=== PATIENT | female | born 1995 | race Caucasian/White ===

== ENCOUNTER 2022-12-13 06:27 | Inpatient (IN) ==
[2022-12-13] MEDS ORDERED: LIDOCAINE 1% LOCAL 20 ML VIAL INFIL PRN (07:00)
[2022-12-13] MEDS ORDERED: OXYTOCIN 30 UNITS/500 ML BAG IV PRN ×2 (07:00)
[2022-12-13] MEDS: LACTATED RINGER'S 1,000 ML IV PRN ×3 (07:30→19:11)
[2022-12-13 07:55] LABS: Hematocrit (blood only) 31.1 % (37.0-47.0); Hemoglobin 9.5 g/dl (12.0-16.0); Mean Corpuscular Hemoglobin 23.6 pg (25.0-34.0); Mean Corpuscular Hgb Conc 30.5 g/dL (32.0-36.0); Mean Corpuscular Volume 77.4 fL (80.0-100.0); Mean Platelet Volume 12.5 fL (9.4-12.4); Platelet Count 197 K/uL (130-400); RDW Coefficient of Variation 14.7 % (11.5-14.5); RDW Standard Deviation 41.4 fL (36.4-46.3); Red Blood Count 4.02 M/uL (4.20-5.40); White Blood Count 13.38 K/ul (4.8-10.8)
--- NOTE | 2022-12-13 07:58 | History & Physical Report ---
Date of Service December 13, 2022 Assessment & Plan (1) Encounter for supervision of normal in multigravida, antepartum: Plan: Discussed plan with patient. Would advise starting pitocin if ctx not in a good labor pattern by 6h post-rupture of membranes. She discussed plan, declining all vaccines and eye ointment for baby, accepts vitamin K. She would like to labor as naturally as possible and prefers to ambulate in the halls and try to get into labor without needing pitocin. We agreed on ambulation for approx 2h and will plan to recheck contraction pattern at that point. She agrees with plan. Admission and Anticipated Discharge Date Admission Date: December 13, 2022 History of Present Illness Chief Complaint: rupture of membranes Primary Care Provider: NO PCP 27yo @ 40 0, presents after ROM at home for clear fluid at 0200 this morning. Feeling ctx Q 4-5 min. Rubella equivocal. Prior with hemorrhage - needed blood transfusion. Patient does not really recall details - but did not need to go back to OR. Allergies Allergy/AdvReac Type Severity Reaction Status Date / Time No Known Allergies Allergy Verified 12/13/22 07:19 Home Medications Medication Instructions Recorded Confirmed Type prenat.vits,negrito,iwy-mslz-eovye 1 tab PO DAILY 04/30/22 12/13/22 History Patient History Medical History (Updated 12/13/22 @ 06:59 by Jennie Steele RN) Spontaneous vaginal delivery Heart murmur Family History (Updated 03/11/22 @ 14:59 by Diamante Munroe LPN) Grandmother (Maternal) Ovarian cancer Grandmother (Paternal) Ovarian cancer Denies family history of Prostate cancer Myocardial infarction Breast cancer Colorectal cancer Social History (Updated 04/30/22 @ 10:12 by Ashwini Acuna) Smoking Status: Never smoker Tobacco Type: Cigarettes Do You Dip or Chew Tobacco: No; Hx Alcohol Use: No Hx Substance Use: No Preferred Language: Pashto [employer]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 Beliefs That Will Affect Care: None marital status: marital status details: Jaleel Diaz ([phone] Current Living Situation: Family Current Living Situation Comment: lives with spouse, 2 step sons, daughter, current occupational status: unemployed Feels Safe at Home: Yes Safety Concerns: Feels Safe At This Time Assistive Devices: None Review of Systems All systems reviewed & are unremarkable except as noted in HPI & below Physical Exam Constitutional: WD/WN, vitals as above Respiratory: normal respiratory effort, lungs clear to auscultation no respiratory distress Cardiovascular: Rate/Rhythm: regular rate and regular rhythm Gastrointestinal (Abdomen): Inspection/Auscultation: abdomen normal to inspection Percussion/Palpation: abdomen soft; abdomen nontender Gravid. No s/s chorio or abruption. Skin: no rashes, warm and dry Psychiatric: A+Ox3, euthymic affect Results & Data Vital Signs (Past 12 Hours) Vital Signs Temp Pulse Resp BP 12/13/22 06:37 89 119/68 12/13/22 06:36 18 12/13/22 06:36 36.7 C 18 Monitoring External Monitor FHT Cat 1 [place] Q 4 min SVE 3/70/-2, grossly ruptured. Coding Level of Care Code None Diagnoses Encounter for supervision of normal in multigravida, antepartum Z34.80
--- NOTE | 2022-12-13 12:37 | Labor Progress Brief Note ---
Date of Service December 13, 2022 Subjective Patient is uncomfortable - feeling rectal pressure, like she needs to have a bowel movement. Discussed with her that this is sometimes actually a bowel movement, but often when the baby starts to move down in the canal, this can feel the same way. I recommended cervix exam, she discussed with material crew supervisor and permitted the cervical exam. Upon exam, clear amniotic fluid, no bloody show. Cervix remains similar exam - very uncomfortable for patient, therefore exam is difficult - but approx 3/70/- 2. FHT Cat 1 [place] Q 3-5 min. Discussed that since she is 10-11h since rupture of membranes with no cervical change and inadequate contraction pattern, would advise starting pitocin to augment labor. Benefits of labor augmentation would be to reduce risk of chorioamnionitis and hemorrhage, both which are associated with prolonged labor. She is aware of her increased risk of hemorrhage given her history of hemorrhage with prior delivery and need for blood transfusion. She would like to relax in the labor room, as she feels that everything goes better when relaxed, and discuss with her material crew supervisor and partner. If she chooses to accept pitocin, she will let us know. Assessment & Plan Admission and Anticipated Discharge Date Admission Date: December 13, 2022 Results & Data Vital Signs (Past 12 Hours) Vital Signs Temp Pulse Resp BP 12/13/22 10:43 18 12/13/22 10:43 36.8 C 18 12/13/22 10:43 106 H 12/13/22 10:43 116/58 L 12/13/22 08:53 18 12/13/22 08:53 36.8 C 18 12/13/22 08:53 87 12/13/22 08:53 117/56 L 12/13/22 06:37 89 119/68 12/13/22 06:36 18 12/13/22 06:36 36.7 C 18 Coding Level of Care Code None
[2022-12-13] MEDS ORDERED: ePHEDrine sulfate 50 MG/ML AMP ONE (14:08)
[2022-12-13] MEDS ORDERED: fentaNYL citrate PF 100 MCG/2 ML VIAL ONE ×2 (14:08→22:06)
[2022-12-13] MEDS ORDERED: LIDOCAINE 2%/EPINEPHRINE 1:200,000 20 ML PF ONE (14:09)
[2022-12-13] MEDS ORDERED: SODIUM CHLORIDE 0.9% PF INJ 10 ML VIAL ONE (14:09)
[2022-12-13] MEDS ORDERED: fentANYL 2 MCG/ML BUPIVacaine 0.125%-NSS 100ML BAG ONE (14:09)
[2022-12-13] MEDS ORDERED: BUPIVACAINE 0.25% PF 30 ML VIAL ONE (14:09)
--- NOTE | 2022-12-13 14:23 | Anesthesiology Consultation ---
Date of Service December 13, 2022 History Height/Weight Height: 5 ft 1 in Weight: 72.121 kg Allergies Allergy/AdvReac Type Severity Reaction Status Date / Time No Known Allergies Allergy Verified 12/13/22 07:19 Medications Home Medications Medication Instructions Recorded Confirmed Last Taken prenat.vits,negrito,twu-vkto-wvkbm 1 tab PO DAILY 04/30/22 12/13/22 11/22/22 Active Medications Generic Name Dose Route Start Last Admin Trade Name Joseph PRN Reason Stop Dose Admin Oxytocin 30 units in 500 mls @ 5 mls/hr 12/13/22 07:00 12/13/22 14:18 Pitocin IV 12/15/22 06:59 0 units/hr .Q24H PRN 0 mls/hr Labor Induction/Augmentation Titration Protocol 0.3 UNITS/HR Lactated Ringer's 1,000 mls @ 125 mls/hr 12/13/22 07:00 12/13/22 14:21 Lr IV 12/15/22 06:59 999 mls/hr .Q8H PRN Administration L&D Protocol Protocol Past Medical History Medical History Spontaneous vaginal delivery Heart murmur anemia migraine H/A's Hx/o Gastric ulcer obese Exercise / Class Metabolic Activity II 4-5 Yardwork/Stairs/Walk up hill Past Family History Family History Grandmother (Maternal) Ovarian cancer Grandmother (Paternal) Ovarian cancer Denies family history of Prostate cancer Myocardial infarction Breast cancer Colorectal cancer Past Anesthesia History No Hx of Anesthesia Complications and No Family Hx of Anesthesia Complications History of PONV No Hx of PONV and No Hx of Motion Sickness Social History Smoking Status: Never smoker Do You Dip or Chew Tobacco: No Hx Alcohol Use: No Hx Substance Use: No substance use type: does not use Physical Exam Vital Signs Last Vital Signs Temp 36.5 C 12/13/22 13:37 Pulse 80 12/13/22 12:40 Resp 18 12/13/22 12:40 BP 116/72 12/13/22 12:40 Testing Laboratory Results 12/13/22 07:25 Blood Type O Positive 12/13/22 07:25 Antibody Screen NEGATIVE 12/13/22 07:25
[2022-12-13] MEDS ORDERED: LIDOCAINE 2% MPF LOCAL 5 ML VIAL EPI PRN (14:59)
[2022-12-13] MEDS ORDERED: PROMETHAZINE HCL 25 MG in SODIUM CHLORIDE 0.9% 50 ML IV PRN (14:59)
[2022-12-13] MEDS ORDERED: LIDOCAINE 2%/EPINEPHRINE 1:200,000 20 ML PF EPI STA (14:59)
[2022-12-13] MEDS ORDERED: NALBUPHINE HCL INJ 10 MG/ML AMP IV PRN ×2 (14:59→21:48)
[2022-12-13] MEDS ORDERED: NALOXONE HCL 0.4 MG/1 ML VIAL/CARP IV PRN ×2 (14:59→21:48)
[2022-12-13] MEDS ORDERED: fentaNYL citrate PF 100 MCG/2 ML VIAL EPI PRN (14:59)
[2022-12-13] MEDS ORDERED: ePHEDrine sulfate 50 MG/ML AMP IV PRN ×2 (14:59→21:48)
[2022-12-13] MEDS ORDERED: ROPIVACAINE 0.5% PF 5 MG/ML 20 ML VIAL EPI PRN (14:59)
[2022-12-13] MEDS ORDERED: ONDANSETRON INJ 2 MG/ML 2 ML VIAL IV PRN ×2 (14:59→21:48)
[2022-12-13] MEDS ORDERED: fentaNYL citrate PF 100 MCG/2 ML VIAL EPI STA (14:59)
[2022-12-13] MEDS ORDERED: fentANYL 2 MCG/ML BUPIVacaine 0.125%-NSS 100ML BAG EPI PRN (14:59)
[2022-12-13] MEDS ORDERED: NALOXONE HCL 1 MG in SODIUM CHLORIDE 0.9% 1,000 ML IV PRN ×2 (14:59→21:48)
[2022-12-13] MEDS ORDERED: SODIUM CHLORIDE 0.9% PF INJ 10 ML VIAL EPI STA (14:59)
[2022-12-13] MEDS ORDERED: BUPIVACAINE 0.25% PF 30 ML VIAL EPI STA (14:59)
[2022-12-13] MEDS ORDERED: diphenhydrAMINE 50 MG/ML VIAL IV PRN ×2 (14:59→21:48)
[2022-12-13] MEDS ORDERED: BUPIVACAINE 0.25% PF 30 ML VIAL EPI PRN (14:59)
[2022-12-13] MEDS ORDERED: SODIUM CHLORIDE 0.9% PF INJ 10 ML VIAL EPI PRN (14:59)
--- NOTE | 2022-12-13 15:54 | Labor Progress Brief Note ---
Date of Service December 13, 2022 Subjective Patient elected for epidural. More comfortable now. FHT 140s mod usman, +accels. Had a 3 minute deceleration, resolved with resuscitative measures. SVE per RN 6/100/-1 Will continue labor, continue to monitor baby - baby has fully recovered at this point. Assessment & Plan Admission and Anticipated Discharge Date Admission Date: December 13, 2022 Results & Data Vital Signs (Past 12 Hours) Vital Signs Temp Pulse Resp BP Pulse Ox 12/13/22 15:50 100 12/13/22 15:50 108 H 12/13/22 15:45 100 12/13/22 15:45 111 H 12/13/22 15:43 110 H 12/13/22 15:43 128/78 12/13/22 15:40 100 12/13/22 15:40 107 H 12/13/22 15:35 98 12/13/22 15:35 127 H 12/13/22 15:34 112 H 12/13/22 15:34 114/66 12/13/22 15:30 97 12/13/22 15:30 118 H 12/13/22 15:30 120 H 12/13/22 15:30 116/66 12/13/22 15:25 97 12/13/22 15:25 120 H 12/13/22 15:24 136 H 12/13/22 15:24 104/62 12/13/22 15:20 19 12/13/22 15:20 36.8 C 19 12/13/22 15:20 98 12/13/22 15:20 129 H 12/13/22 15:19 127 H 12/13/22 15:19 118/64 12/13/22 15:15 96 12/13/22 15:15 133 H 12/13/22 15:10 98 12/13/22 15:10 125 H 12/13/22 15:10 185/76 H 12/13/22 15:08 123 H 12/13/22 15:08 117/64 12/13/22 15:06 129 H 12/13/22 15:06 107/58 L 12/13/22 15:05 98 12/13/22 15:05 133 H 12/13/22 15:03 95 H 12/13/22 15:03 102/55 L 12/13/22 15:01 85 12/13/22 15:01 93/49 L 12/13/22 15:00 98 12/13/22 15:00 92 H 12/13/22 14:58 94 H 12/13/22 14:58 87/49 L 12/13/22 14:56 102 H 12/13/22 14:56 106/55 L 12/13/22 14:55 98 12/13/22 14:55 106 H 12/13/22 14:54 96 H 12/13/22 14:54 103/51 L 12/13/22 14:52 96 H 12/13/22 14:52 112/56 L 12/13/22 14:50 97 12/13/22 14:50 86 12/13/22 14:50 95 H 12/13/22 14:50 111/57 L 12/13/22 14:48 92 H 12/13/22 14:48 112/58 L 12/13/22 14:45 98 12/13/22 14:45 92 H 12/13/22 14:40 95 12/13/22 14:40 99 H 12/13/22 14:35 96 12/13/22 14:35 113 H 12/13/22 14:30 99 12/13/22 14:30 91 H 12/13/22 14:25 100 12/13/22 14:25 89 12/13/22 14:20 100 12/13/22 14:20 108 H 12/13/22 13:37 36.5 C 12/13/22 12:40 18 12/13/22 12:40 18 12/13/22 12:40 80 12/13/22 12:40 116/72 12/13/22 10:43 18 12/13/22 10:43 36.8 C 18 12/13/22 10:43 106 H 12/13/22 10:43 116/58 L 12/13/22 08:53 18 12/13/22 08:53 36.8 C 18 12/13/22 08:53 87 12/13/22 08:53 117/56 L 12/13/22 06:37 89 119/68 12/13/22 06:36 18 12/13/22 06:36 36.7 C 18 Coding Level of Care Code None
--- NOTE | 2022-12-13 19:06 | Labor Progress Brief Note ---
Date of Service December 13, 2022 Subjective Pushing for 1 hour at this point. FHT 165, mod usman, +accels, occ variable (not recurrent) 2+ station. Continue labor. Assessment & Plan Admission and Anticipated Discharge Date Admission Date: December 13, 2022 Results & Data Vital Signs (Past 12 Hours) Vital Signs Temp Pulse Resp BP Pulse Ox 12/13/22 19:01 96 H 12/13/22 19:01 112/69 12/13/22 19:00 97 12/13/22 19:00 105 H 12/13/22 18:55 99 12/13/22 18:55 109 H 12/13/22 18:50 97 12/13/22 18:50 100 H 12/13/22 18:45 98 12/13/22 18:45 102 H 12/13/22 18:42 76 L 12/13/22 18:42 106 H 12/13/22 18:40 98 12/13/22 18:40 115 H 12/13/22 18:35 98 12/13/22 18:35 107 H 12/13/22 18:33 78 L 12/13/22 18:33 102 H 12/13/22 18:31 115 H 12/13/22 18:31 121/81 12/13/22 18:30 97 12/13/22 18:30 125 H 12/13/22 18:27 90 12/13/22 18:27 107 H 12/13/22 18:25 98 12/13/22 18:25 107 H 12/13/22 18:20 98 12/13/22 18:20 108 H 12/13/22 18:18 93 12/13/22 18:18 103 H 12/13/22 18:15 99 12/13/22 18:15 105 H 12/13/22 18:12 87 L 12/13/22 18:12 100 H 12/13/22 18:10 99 12/13/22 18:10 129 H 12/13/22 18:06 82 L 12/13/22 18:06 100 H 12/13/22 18:05 100 12/13/22 18:05 101 H 12/13/22 18:00 100 12/13/22 18:00 109 H 12/13/22 17:58 22 12/13/22 17:58 36.9 C 22 12/13/22 17:57 94 12/13/22 17:57 104 H 12/13/22 17:55 100 12/13/22 17:55 103 H 12/13/22 17:50 100 12/13/22 17:50 94 H 12/13/22 17:45 100 12/13/22 17:45 96 H 12/13/22 17:45 93 H 12/13/22 17:45 128/71 12/13/22 17:40 99 12/13/22 17:40 104 H 12/13/22 17:35 100 12/13/22 17:35 99 H 12/13/22 17:31 95 H 12/13/22 17:31 130/70 12/13/22 17:30 98 12/13/22 17:30 101 H 12/13/22 17:25 100 12/13/22 17:25 94 H 12/13/22 17:20 100 12/13/22 17:20 94 H 12/13/22 17:15 100 12/13/22 17:15 102 H 12/13/22 17:15 130/71 12/13/22 17:10 100 12/13/22 17:10 104 H 12/13/22 17:05 100 12/13/22 17:05 104 H 12/13/22 17:03 89 L 12/13/22 17:03 98 H 12/13/22 17:01 96 H 12/13/22 17:01 126/68 12/13/22 17:00 100 12/13/22 17:00 96 H 12/13/22 16:55 100 12/13/22 16:55 115 H 12/13/22 16:54 90 12/13/22 16:54 100 H 12/13/22 16:50 99 12/13/22 16:50 96 H 12/13/22 16:45 100 12/13/22 16:45 100 H 12/13/22 16:45 128/72 12/13/22 16:40 100 12/13/22 16:40 90 12/13/22 16:35 100 12/13/22 16:35 90 12/13/22 16:30 100 12/13/22 16:30 91 H 12/13/22 16:30 122/67 12/13/22 16:25 100 12/13/22 16:25 95 H 12/13/22 16:20 100 12/13/22 16:20 110 H 12/13/22 16:18 88 L 12/13/22 16:18 90 12/13/22 16:16 93 H 12/13/22 16:16 120/74 12/13/22 16:15 36.7 C 12/13/22 16:15 100 12/13/22 16:15 100 H 12/13/22 16:10 98 12/13/22 16:10 109 H 12/13/22 16:05 99 12/13/22 16:05 111 H 12/13/22 16:00 98 12/13/22 16:00 101 H 12/13/22 16:00 102 H 12/13/22 16:00 117/71 12/13/22 15:55 100 12/13/22 15:55 114 H 12/13/22 15:50 100 12/13/22 15:50 108 H 12/13/22 15:45 100 12/13/22 15:45 111 H 12/13/22 15:43 110 H 12/13/22 15:43 128/78 12/13/22 15:40 100 12/13/22 15:40 107 H 12/13/22 15:35 98 12/13/22 15:35 127 H 12/13/22 15:34 112 H 12/13/22 15:34 114/66 12/13/22 15:30 97 12/13/22 15:30 118 H 12/13/22 15:30 120 H 12/13/22 15:30 116/66 12/13/22 15:25 97 12/13/22 15:25 120 H 12/13/22 15:24 136 H 12/13/22 15:24 104/62 12/13/22 15:20 19 12/13/22 15:20 36.8 C 19 12/13/22 15:20 98 12/13/22 15:20 129 H 12/13/22 15:19 127 H 12/13/22 15:19 118/64 12/13/22 15:15 96 12/13/22 15:15 133 H 12/13/22 15:10 98 12/13/22 15:10 125 H 12/13/22 15:10 185/76 H 12/13/22 15:08 123 H 12/13/22 15:08 117/64 12/13/22 15:06 129 H 12/13/22 15:06 107/58 L 12/13/22 15:05 98 12/13/22 15:05 133 H 12/13/22 15:03 95 H 12/13/22 15:03 102/55 L 12/13/22 15:01 85 12/13/22 15:01 93/49 L 12/13/22 15:00 98 12/13/22 15:00 92 H 12/13/22 14:58 94 H 12/13/22 14:58 87/49 L 12/13/22 14:56 102 H 12/13/22 14:56 106/55 L 12/13/22 14:55 98 12/13/22 14:55 106 H 12/13/22 14:54 96 H 12/13/22 14:54 103/51 L 12/13/22 14:52 96 H 12/13/22 14:52 112/56 L 12/13/22 14:50 97 12/13/22 14:50 86 12/13/22 14:50 95 H 12/13/22 14:50 111/57 L 12/13/22 14:48 92 H 12/13/22 14:48 112/58 L 12/13/22 14:45 98 12/13/22 14:45 92 H 12/13/22 14:40 95 12/13/22 14:40 99 H 12/13/22 14:35 96 12/13/22 14:35 113 H 12/13/22 14:30 99 12/13/22 14:30 91 H 12/13/22 14:25 100 12/13/22 14:25 89 12/13/22 14:20 100 12/13/22 14:20 108 H 12/13/22 13:37 36.5 C 12/13/22 12:40 18 12/13/22 12:40 18 12/13/22 12:40 80 12/13/22 12:40 116/72 12/13/22 10:43 18 12/13/22 10:43 36.8 C 18 12/13/22 10:43 106 H 12/13/22 10:43 116/58 L 12/13/22 08:53 18 12/13/22 08:53 36.8 C 18 12/13/22 08:53 87 12/13/22 08:53 117/56 L Coding Level of Care Code None
--- NOTE | 2022-12-13 19:36 | Labor Progress Brief Note ---
Date of Service December 13, 2022 Subjective Patient is declining pushing help/exams with RN. On my exam, station remains at 2+. Will continue increasing pitocin to improve power, as patient is motivated for vaginal delivery. Discussed with patient about pushing through pain point rather than backing away - can continue pushing epidural button. Assessment & Plan Admission and Anticipated Discharge Date Admission Date: December 13, 2022 Results & Data Vital Signs (Past 12 Hours) Vital Signs Temp Pulse Resp BP Pulse Ox 12/13/22 19:31 101 H 12/13/22 19:31 133/79 12/13/22 19:30 99 12/13/22 19:30 104 H 12/13/22 19:25 98 12/13/22 19:25 96 H 12/13/22 19:20 98 12/13/22 19:20 99 H 12/13/22 19:16 117 H 12/13/22 19:16 132/73 12/13/22 19:15 98 12/13/22 19:15 99 H 12/13/22 19:10 98 12/13/22 19:10 97 H 12/13/22 19:05 97 12/13/22 19:05 101 H 12/13/22 19:01 96 H 12/13/22 19:01 112/69 12/13/22 19:00 97 12/13/22 19:00 105 H 12/13/22 18:55 99 12/13/22 18:55 109 H 12/13/22 18:50 97 12/13/22 18:50 100 H 12/13/22 18:45 98 12/13/22 18:45 102 H 12/13/22 18:42 76 L 12/13/22 18:42 106 H 12/13/22 18:40 98 12/13/22 18:40 115 H 12/13/22 18:35 98 12/13/22 18:35 107 H 12/13/22 18:33 78 L 12/13/22 18:33 102 H 12/13/22 18:31 115 H 12/13/22 18:31 121/81 12/13/22 18:30 97 12/13/22 18:30 125 H 12/13/22 18:27 90 12/13/22 18:27 107 H 12/13/22 18:25 98 12/13/22 18:25 107 H 12/13/22 18:20 98 12/13/22 18:20 108 H 12/13/22 18:18 93 12/13/22 18:18 103 H 12/13/22 18:15 99 12/13/22 18:15 105 H 12/13/22 18:12 87 L 12/13/22 18:12 100 H 12/13/22 18:10 99 12/13/22 18:10 129 H 12/13/22 18:06 82 L 12/13/22 18:06 100 H 12/13/22 18:05 100 12/13/22 18:05 101 H 12/13/22 18:00 100 12/13/22 18:00 109 H 12/13/22 17:58 22 12/13/22 17:58 36.9 C 22 12/13/22 17:57 94 12/13/22 17:57 104 H 12/13/22 17:55 100 12/13/22 17:55 103 H 12/13/22 17:50 100 12/13/22 17:50 94 H 12/13/22 17:45 100 12/13/22 17:45 96 H 12/13/22 17:45 93 H 12/13/22 17:45 128/71 12/13/22 17:40 99 12/13/22 17:40 104 H 12/13/22 17:35 100 12/13/22 17:35 99 H 12/13/22 17:31 95 H 12/13/22 17:31 130/70 12/13/22 17:30 98 12/13/22 17:30 101 H 12/13/22 17:25 100 12/13/22 17:25 94 H 12/13/22 17:20 100 12/13/22 17:20 94 H 12/13/22 17:15 100 12/13/22 17:15 102 H 12/13/22 17:15 130/71 12/13/22 17:10 100 12/13/22 17:10 104 H 12/13/22 17:05 100 12/13/22 17:05 104 H 12/13/22 17:03 89 L 12/13/22 17:03 98 H 12/13/22 17:01 96 H 12/13/22 17:01 126/68 12/13/22 17:00 100 12/13/22 17:00 96 H 12/13/22 16:55 100 12/13/22 16:55 115 H 12/13/22 16:54 90 12/13/22 16:54 100 H 12/13/22 16:50 99 12/13/22 16:50 96 H 12/13/22 16:45 100 12/13/22 16:45 100 H 12/13/22 16:45 128/72 12/13/22 16:40 100 12/13/22 16:40 90 12/13/22 16:35 100 12/13/22 16:35 90 12/13/22 16:30 100 12/13/22 16:30 91 H 12/13/22 16:30 122/67 12/13/22 16:25 100 12/13/22 16:25 95 H 12/13/22 16:20 100 12/13/22 16:20 110 H 12/13/22 16:18 88 L 12/13/22 16:18 90 12/13/22 16:16 93 H 12/13/22 16:16 120/74 12/13/22 16:15 36.7 C 12/13/22 16:15 100 12/13/22 16:15 100 H 12/13/22 16:10 98 12/13/22 16:10 109 H 12/13/22 16:05 99 12/13/22 16:05 111 H 12/13/22 16:00 98 12/13/22 16:00 101 H 12/13/22 16:00 102 H 12/13/22 16:00 117/71 12/13/22 15:55 100 12/13/22 15:55 114 H 12/13/22 15:50 100 12/13/22 15:50 108 H 12/13/22 15:45 100 12/13/22 15:45 111 H 12/13/22 15:43 110 H 12/13/22 15:43 128/78 12/13/22 15:40 100 12/13/22 15:40 107 H 12/13/22 15:35 98 12/13/22 15:35 127 H 12/13/22 15:34 112 H 12/13/22 15:34 114/66 11/05/23 15:30 97 12/13/22 15:30 118 H 12/13/22 15:30 120 H 12/13/22 15:30 116/66 12/13/22 15:25 97 12/13/22 15:25 120 H 12/13/22 15:24 136 H 12/13/22 15:24 104/62 12/13/22 15:20 19 12/13/22 15:20 36.8 C 19 12/13/22 15:20 98 12/13/22 15:20 129 H 12/13/22 15:19 127 H 12/13/22 15:19 118/64 12/13/22 15:15 96 12/13/22 15:15 133 H 12/13/22 15:10 98 12/13/22 15:10 125 H 12/13/22 15:10 185/76 H 12/13/22 15:08 123 H 12/13/22 15:08 117/64 12/13/22 15:06 129 H 12/13/22 15:06 107/58 L 12/13/22 15:05 98 12/13/22 15:05 133 H 12/13/22 15:03 95 H 12/13/22 15:03 102/55 L 12/13/22 15:01 85 12/13/22 15:01 93/49 L 12/13/22 15:00 98 12/13/22 15:00 92 H 12/13/22 14:58 94 H 12/13/22 14:58 87/49 L 12/13/22 14:56 102 H 12/13/22 14:56 106/55 L 12/13/22 14:55 98 12/13/22 14:55 106 H 12/13/22 14:54 96 H 12/13/22 14:54 103/51 L 12/13/22 14:52 96 H 12/13/22 14:52 112/56 L 12/13/22 14:50 97 12/13/22 14:50 86 12/13/22 14:50 95 H 12/13/22 14:50 111/57 L 12/13/22 14:48 92 H 12/13/22 14:48 112/58 L 12/13/22 14:45 98 12/13/22 14:45 92 H 12/13/22 14:40 95 12/13/22 14:40 99 H 12/13/22 14:35 96 12/13/22 14:35 113 H 12/13/22 14:30 99 12/13/22 14:30 91 H 12/13/22 14:25 100 12/13/22 14:25 89 12/13/22 14:20 100 12/13/22 14:20 108 H 12/13/22 13:37 36.5 C 12/13/22 12:40 18 12/13/22 12:40 18 12/13/22 12:40 80 12/13/22 12:40 116/72 12/13/22 10:43 18 12/13/22 10:43 36.8 C 18 12/13/22 10:43 106 H 12/13/22 10:43 116/58 L 12/13/22 08:53 18 12/13/22 08:53 36.8 C 18 12/13/22 08:53 87 12/13/22 08:53 117/56 L Coding Level of Care Code None
--- NOTE | 2022-12-13 20:47 | Labor Progress Brief Note ---
Date of Service December 13, 2022 Subjective station is +2.5 when pushing adequately. FHT cat 1. Having difficulty with pushing and holding legs back due to discomfort. Offered a break from pushing to get more comfortable, or continued pushing, or delivery by section. Patient declines delivery by , wants to keep pushing. Discussed that would not recommend vacuum assist for delivery, as this baby appears larger than her prior, and would not want to increase risk of shoulder dystocia. Assessment & Plan Admission and Anticipated Discharge Date Admission Date: December 13, 2022 Results & Data Vital Signs (Past 12 Hours) Vital Signs Temp Pulse Resp BP Pulse Ox 12/13/22 20:41 93 12/13/22 20:41 109 H 12/13/22 20:40 98 12/13/22 20:40 103 H 12/13/22 20:36 92 12/13/22 20:36 119 H 12/13/22 20:35 96 12/13/22 20:35 112 H 12/13/22 20:30 95 12/13/22 20:30 101 H 12/13/22 20:30 131 H 12/13/22 20:30 120/74 12/13/22 20:28 93 12/13/22 20:28 115 H 12/13/22 20:25 97 12/13/22 20:25 96 H 12/13/22 20:20 97 12/13/22 20:20 105 H 12/13/22 20:17 92 12/13/22 20:17 100 H 12/13/22 20:15 97 12/13/22 20:15 105 H 12/13/22 20:15 122/70 12/13/22 20:10 98 12/13/22 20:10 123 H 12/13/22 20:05 98 12/13/22 20:05 96 H 12/13/22 20:00 98 12/13/22 20:00 129 H 12/13/22 20:00 106 H 12/13/22 20:00 122/70 12/13/22 19:59 91 12/13/22 19:59 113 H 12/13/22 19:55 97 12/13/22 19:55 103 H 12/13/22 19:50 96 12/13/22 19:50 111 H 12/13/22 19:49 93 12/13/22 19:49 102 H 12/13/22 19:45 98 12/13/22 19:45 116 H 12/13/22 19:45 109 H 12/13/22 19:45 126/74 12/13/22 19:40 99 12/13/22 19:40 109 H 12/13/22 19:35 98 12/13/22 19:35 102 H 12/13/22 19:34 94 12/13/22 19:34 105 H 12/13/22 19:31 101 H 12/13/22 19:31 133/79 12/13/22 19:30 99 12/13/22 19:30 104 H 12/13/22 19:25 98 12/13/22 19:25 96 H 12/13/22 19:20 98 12/13/22 19:20 99 H 12/13/22 19:16 117 H 12/13/22 19:16 132/73 12/13/22 19:15 98 12/13/22 19:15 99 H 12/13/22 19:10 98 12/13/22 19:10 97 H 12/13/22 19:05 97 12/13/22 19:05 101 H 12/13/22 19:01 96 H 12/13/22 19:01 112/69 12/13/22 19:00 97 12/13/22 19:00 105 H 12/13/22 18:55 99 12/13/22 18:55 109 H 12/13/22 18:50 97 12/13/22 18:50 100 H 12/13/22 18:45 98 12/13/22 18:45 102 H 12/13/22 18:42 76 L 12/13/22 18:42 106 H 12/13/22 18:40 98 12/13/22 18:40 115 H 12/13/22 18:35 98 12/13/22 18:35 107 H 12/13/22 18:33 78 L 12/13/22 18:33 102 H 12/13/22 18:31 115 H 12/13/22 18:31 121/81 12/13/22 18:30 97 12/13/22 18:30 125 H 12/13/22 18:27 90 12/13/22 18:27 107 H 12/13/22 18:25 98 12/13/22 18:25 107 H 12/13/22 18:20 98 12/13/22 18:20 108 H 12/13/22 18:18 93 12/13/22 18:18 103 H 12/13/22 18:15 99 12/13/22 18:15 105 H 12/13/22 18:12 87 L 12/13/22 18:12 100 H 12/13/22 18:10 99 12/13/22 18:10 129 H 12/13/22 18:06 82 L 12/13/22 18:06 100 H 12/13/22 18:05 100 12/13/22 18:05 101 H 12/13/22 18:00 100 12/13/22 18:00 109 H 12/13/22 17:58 22 12/13/22 17:58 36.9 C 22 12/13/22 17:57 94 12/13/22 17:57 104 H 12/13/22 17:55 100 12/13/22 17:55 103 H 12/13/22 17:50 100 12/13/22 17:50 94 H 12/13/22 17:45 100 12/13/22 17:45 96 H 12/13/22 17:45 93 H 12/13/22 17:45 128/71 12/13/22 17:40 99 12/13/22 17:40 104 H 12/13/22 17:35 100 12/13/22 17:35 99 H 12/13/22 17:31 95 H 12/13/22 17:31 130/70 12/13/22 17:30 98 12/13/22 17:30 101 H 12/13/22 17:25 100 12/13/22 17:25 94 H 12/13/22 17:20 100 12/13/22 17:20 94 H 12/13/22 17:15 100 12/13/22 17:15 102 H 12/13/22 17:15 130/71 12/13/22 17:10 100 12/13/22 17:10 104 H 12/13/22 17:05 100 12/13/22 17:05 104 H 12/13/22 17:03 89 L 12/13/22 17:03 98 H 12/13/22 17:01 96 H 12/13/22 17:01 126/68 12/13/22 17:00 100 12/13/22 17:00 96 H 12/13/22 16:55 100 12/13/22 16:55 115 H 12/13/22 16:54 90 12/13/22 16:54 100 H 12/13/22 16:50 99 12/13/22 16:50 96 H 12/13/22 16:45 100 12/13/22 16:45 100 H 12/13/22 16:45 128/72 12/13/22 16:40 100 12/13/22 16:40 90 12/13/22 16:35 100 12/13/22 16:35 90 12/13/22 16:30 100 12/13/22 16:30 91 H 12/13/22 16:30 122/67 12/13/22 16:25 100 12/13/22 16:25 95 H 12/13/22 16:20 100 12/13/22 16:20 110 H 12/13/22 16:18 88 L 12/13/22 16:18 90 12/13/22 16:16 93 H 12/13/22 16:16 120/74 12/13/22 16:15 36.7 C 12/13/22 16:15 100 12/13/22 16:15 100 H 12/13/22 16:10 98 12/13/22 16:10 109 H 12/13/22 16:05 99 12/13/22 16:05 111 H 12/13/22 16:00 98 12/13/22 16:00 101 H 12/13/22 16:00 102 H 12/13/22 16:00 117/71 12/13/22 15:55 100 12/13/22 15:55 114 H 12/13/22 15:50 100 12/13/22 15:50 108 H 12/13/22 15:45 100 12/13/22 15:45 111 H 12/13/22 15:43 110 H 12/13/22 15:43 128/78 12/13/22 15:40 100 12/13/22 15:40 107 H 12/13/22 15:35 98 12/13/22 15:35 127 H 12/13/22 15:34 112 H 12/13/22 15:34 114/66 12/13/22 15:30 97 12/13/22 15:30 118 H 12/13/22 15:30 120 H 12/13/22 15:30 116/66 12/13/22 15:25 97 12/13/22 15:25 120 H 12/13/22 15:24 136 H 12/13/22 15:24 104/62 12/13/22 15:20 19 12/13/22 15:20 36.8 C 19 12/13/22 15:20 98 12/13/22 15:20 129 H 12/13/22 15:19 127 H 12/13/22 15:19 118/64 12/13/22 15:15 96 12/13/22 15:15 133 H 12/13/22 15:10 98 12/13/22 15:10 125 H 12/13/22 15:10 185/76 H 12/13/22 15:08 123 H 12/13/22 15:08 117/64 12/13/22 15:06 129 H 12/13/22 15:06 107/58 L 12/13/22 15:05 98 12/13/22 15:05 133 H 12/13/22 15:03 95 H 12/13/22 15:03 102/55 L 12/13/22 15:01 85 12/13/22 15:01 93/49 L 12/13/22 15:00 98 12/13/22 15:00 92 H 12/13/22 14:58 94 H 12/13/22 14:58 87/49 L 12/13/22 14:56 102 H 12/13/22 14:56 106/55 L 12/13/22 14:55 98 12/13/22 14:55 106 H 12/13/22 14:54 96 H 12/13/22 14:54 103/51 L 12/13/22 14:52 96 H 12/13/22 14:52 112/56 L 12/13/22 14:50 97 12/13/22 14:50 86 12/13/22 14:50 95 H 12/13/22 14:50 111/57 L 12/13/22 14:48 92 H 12/13/22 14:48 112/58 L 12/13/22 14:45 98 12/13/22 14:45 92 H 12/13/22 14:40 95 12/13/22 14:40 99 H 12/13/22 14:35 96 12/13/22 14:35 113 H 12/13/22 14:30 99 12/13/22 14:30 91 H 12/13/22 14:25 100 12/13/22 14:25 89 12/13/22 14:20 100 12/13/22 14:20 108 H 12/13/22 13:37 36.5 C 12/13/22 12:40 18 12/13/22 12:40 18 12/13/22 12:40 80 12/13/22 12:40 116/72 12/13/22 10:43 18 12/13/22 10:43 36.8 C 18 12/13/22 10:43 106 H 12/13/22 10:43 116/58 L 12/13/22 08:53 18 12/13/22 08:53 36.8 C 18 12/13/22 08:53 87 12/13/22 08:53 117/56 L Coding Level of Care Code None
--- NOTE | 2022-12-13 21:05 | Labor Progress Brief Note ---
Date of Service December 13, 2022 Subjective Patient has been pushing for 3 hours at this point, minimal improvement in station over the past 2 hours. Patient has reached the point of exhaustion. We have tried pushing in various positions, handlebars, etc. I offered patient delivery by section, vs a plan for another short period of time to evaluate pushing/ station. She cut me off and told me to leave her hospital room because she wanted to talk to her . I told her to please let us know when she would like to continue the discussion. Assessment & Plan Admission and Anticipated Discharge Date Admission Date: December 13, 2022 Results & Data Vital Signs (Past 12 Hours) Vital Signs Temp Pulse Resp BP Pulse Ox 12/13/22 20:45 99 12/13/22 20:45 120 H 12/13/22 20:45 125 H 12/13/22 20:45 123/76 12/13/22 20:41 93 12/13/22 20:41 109 H 12/13/22 20:40 98 12/13/22 20:40 103 H 12/13/22 20:36 92 12/13/22 20:36 119 H 12/13/22 20:35 96 12/13/22 20:35 112 H 12/13/22 20:30 95 12/13/22 20:30 101 H 12/13/22 20:30 131 H 12/13/22 20:30 120/74 12/13/22 20:28 93 12/13/22 20:28 115 H 12/13/22 20:25 97 12/13/22 20:25 96 H 12/13/22 20:20 97 12/13/22 20:20 105 H 12/13/22 20:17 92 12/13/22 20:17 100 H 12/13/22 20:15 97 12/13/22 20:15 105 H 12/13/22 20:15 122/70 12/13/22 20:10 98 12/13/22 20:10 123 H 12/13/22 20:05 98 12/13/22 20:05 96 H 12/13/22 20:00 98 12/13/22 20:00 129 H 12/13/22 20:00 106 H 12/13/22 20:00 122/70 12/13/22 19:59 91 12/13/22 19:59 113 H 12/13/22 19:55 97 12/13/22 19:55 103 H 12/13/22 19:50 96 12/13/22 19:50 111 H 12/13/22 19:49 93 12/13/22 19:49 102 H 12/13/22 19:45 98 12/13/22 19:45 116 H 12/13/22 19:45 109 H 12/13/22 19:45 126/74 12/13/22 19:40 99 12/13/22 19:40 109 H 12/13/22 19:35 98 12/13/22 19:35 102 H 12/13/22 19:34 94 12/13/22 19:34 105 H 12/13/22 19:31 101 H 12/13/22 19:31 133/79 12/13/22 19:30 99 12/13/22 19:30 104 H 12/13/22 19:25 98 12/13/22 19:25 96 H 12/13/22 19:20 98 12/13/22 19:20 99 H 12/13/22 19:16 117 H 12/13/22 19:16 132/73 12/13/22 19:15 98 12/13/22 19:15 99 H 12/13/22 19:10 98 12/13/22 19:10 97 H 12/13/22 19:05 97 12/13/22 19:05 101 H 12/13/22 19:01 96 H 12/13/22 19:01 112/69 12/13/22 19:00 97 12/13/22 19:00 105 H 12/13/22 18:55 99 12/13/22 18:55 109 H 12/13/22 18:50 97 12/13/22 18:50 100 H 12/13/22 18:45 98 12/13/22 18:45 102 H 12/13/22 18:42 76 L 12/13/22 18:42 106 H 12/13/22 18:40 98 12/13/22 18:40 115 H 12/13/22 18:35 98 12/13/22 18:35 107 H 12/13/22 18:33 78 L 12/13/22 18:33 102 H 12/13/22 18:31 115 H 12/13/22 18:31 121/81 12/13/22 18:30 97 12/13/22 18:30 125 H 12/13/22 18:27 90 12/13/22 18:27 107 H 12/13/22 18:25 98 12/13/22 18:25 107 H 12/13/22 18:20 98 12/13/22 18:20 108 H 12/13/22 18:18 93 12/13/22 18:18 103 H 12/13/22 18:15 99 12/13/22 18:15 105 H 12/13/22 18:12 87 L 12/13/22 18:12 100 H 12/13/22 18:10 99 12/13/22 18:10 129 H 12/13/22 18:06 82 L 12/13/22 18:06 100 H 12/13/22 18:05 100 12/13/22 18:05 101 H 12/13/22 18:00 100 12/13/22 18:00 109 H 12/13/22 17:58 22 12/13/22 17:58 36.9 C 22 12/13/22 17:57 94 12/13/22 17:57 104 H 12/13/22 17:55 100 12/13/22 17:55 103 H 12/13/22 17:50 100 12/13/22 17:50 94 H 12/13/22 17:45 100 12/13/22 17:45 96 H 12/13/22 17:45 93 H 12/13/22 17:45 128/71 12/13/22 17:40 99 12/13/22 17:40 104 H 12/13/22 17:35 100 12/13/22 17:35 99 H 12/13/22 17:31 95 H 12/13/22 17:31 130/70 12/13/22 17:30 98 12/13/22 17:30 101 H 12/13/22 17:25 100 12/13/22 17:25 94 H 12/13/22 17:20 100 12/13/22 17:20 94 H 12/13/22 17:15 100 12/13/22 17:15 102 H 12/13/22 17:15 130/71 12/13/22 17:10 100 12/13/22 17:10 104 H 12/13/22 17:05 100 12/13/22 17:05 104 H 12/13/22 17:03 89 L 12/13/22 17:03 98 H 12/13/22 17:01 96 H 12/13/22 17:01 126/68 12/13/22 17:00 100 12/13/22 17:00 96 H 12/13/22 16:55 100 12/13/22 16:55 115 H 12/13/22 16:54 90 12/13/22 16:54 100 H 12/13/22 16:50 99 12/13/22 16:50 96 H 12/13/22 16:45 100 12/13/22 16:45 100 H 12/13/22 16:45 128/72 12/13/22 16:40 100 12/13/22 16:40 90 12/13/22 16:35 100 12/13/22 16:35 90 12/13/22 16:30 100 12/13/22 16:30 91 H 12/13/22 16:30 122/67 12/13/22 16:25 100 12/13/22 16:25 95 H 12/13/22 16:20 100 12/13/22 16:20 110 H 12/13/22 16:18 88 L 12/13/22 16:18 90 12/13/22 16:16 93 H 12/13/22 16:16 120/74 12/13/22 16:15 36.7 C 12/13/22 16:15 100 12/13/22 16:15 100 H 12/13/22 16:10 98 12/13/22 16:10 109 H 12/13/22 16:05 99 12/13/22 16:05 111 H 12/13/22 16:00 98 12/13/22 16:00 101 H 12/13/22 16:00 102 H 12/13/22 16:00 117/71 12/13/22 15:55 100 12/13/22 15:55 114 H 12/13/22 15:50 100 12/13/22 15:50 108 H 12/13/22 15:45 100 12/13/22 15:45 111 H 12/13/22 15:43 110 H 12/13/22 15:43 128/78 12/13/22 15:40 100 12/13/22 15:40 107 H 12/13/22 15:35 98 12/13/22 15:35 127 H 12/13/22 15:34 112 H 12/13/22 15:34 114/66 12/13/22 15:30 97 12/13/22 15:30 118 H 12/13/22 15:30 120 H 12/13/22 15:30 116/66 12/13/22 15:25 97 12/13/22 15:25 120 H 12/13/22 15:24 136 H 12/13/22 15:24 104/62 12/13/22 15:20 19 12/13/22 15:20 36.8 C 19 12/13/22 15:20 98 12/13/22 15:20 129 H 12/13/22 15:19 127 H 12/13/22 15:19 118/64 12/13/22 15:15 96 12/13/22 15:15 133 H 12/13/22 15:10 98 12/13/22 15:10 125 H 12/13/22 15:10 185/76 H 12/13/22 15:08 123 H 12/13/22 15:08 117/64 12/13/22 15:06 129 H 12/13/22 15:06 107/58 L 12/13/22 15:05 98 12/13/22 15:05 133 H 12/13/22 15:03 95 H 12/13/22 15:03 102/55 L 12/13/22 15:01 85 12/13/22 15:01 93/49 L 12/13/22 15:00 98 12/13/22 15:00 92 H 12/13/22 14:58 94 H 12/13/22 14:58 87/49 L 12/13/22 14:56 102 H 12/13/22 14:56 106/55 L 12/13/22 14:55 98 12/13/22 14:55 106 H 12/13/22 14:54 96 H 12/13/22 14:54 103/51 L 12/13/22 14:52 96 H 12/13/22 14:52 112/56 L 12/13/22 14:50 97 12/13/22 14:50 86 12/13/22 14:50 95 H 12/13/22 14:50 111/57 L 12/13/22 14:48 92 H 12/13/22 14:48 112/58 L 12/13/22 14:45 98 12/13/22 14:45 92 H 12/13/22 14:40 95 12/13/22 14:40 99 H 12/13/22 14:35 96 12/13/22 14:35 113 H 12/13/22 14:30 99 12/13/22 14:30 91 H 12/13/22 14:25 100 12/13/22 14:25 89 12/13/22 14:20 100 12/13/22 14:20 108 H 12/13/22 13:37 36.5 C 12/13/22 12:40 18 12/13/22 12:40 18 12/13/22 12:40 80 12/13/22 12:40 116/72 12/13/22 10:43 18 12/13/22 10:43 36.8 C 18 12/13/22 10:43 106 H 12/13/22 10:43 116/58 L Coding Level of Care Code None
[2022-12-13] MEDS ORDERED: MoRPHine SULFATE 2 MG/ML CARP IV PRN (21:48)
[2022-12-13] MEDS ORDERED: MoRPHine SULFATE PF 1 MG/ML 10 ML AMP/VIAL EPI ONE (21:48)
[2022-12-13] MEDS ORDERED: NALOXONE HCL 0.08 MG in SYRINGE 1.8 ML IV PRN (21:48)
[2022-12-13] MEDS ORDERED: KETOROLAC 30 MG/ML VIAL IV PRN (21:48)
[2022-12-13] MEDS ORDERED: LACTATED RINGER'S 500 ML IV PRN (21:48)
--- NOTE | 2022-12-13 21:52 | Labor Progress Brief Note ---
Date of Service December 13, 2022 Subjective Patient had been pushing for 3.5h, still station 2.5+. Discussed with patient that baby has not moved any further down the canal, despite her pushing efforts. I am recommending delivery by section for failure to descend. 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 Assessment & Plan Admission and Anticipated Discharge Date Admission Date: December 13, 2022 Results & Data Vital Signs (Past 12 Hours) Vital Signs Temp Pulse Resp BP Pulse Ox 12/13/22 21:39 100 12/13/22 21:39 124 H 12/13/22 21:34 98 12/13/22 21:34 118 H 12/13/22 21:32 104 H 12/13/22 21:32 123/77 12/13/22 21:29 97 12/13/22 21:29 98 H 12/13/22 21:24 95 12/13/22 21:24 102 H 12/13/22 21:19 98 12/13/22 21:19 118 H 12/13/22 21:19 90 12/13/22 21:19 103 H 12/13/22 21:14 96 12/13/22 21:14 110 H 12/13/22 20:45 99 12/13/22 20:45 120 H 12/13/22 20:45 125 H 12/13/22 20:45 123/76 12/13/22 20:41 93 12/13/22 20:41 109 H 12/13/22 20:40 98 12/13/22 20:40 103 H 12/13/22 20:36 92 12/13/22 20:36 119 H 12/13/22 20:35 96 12/13/22 20:35 112 H 12/13/22 20:30 95 12/13/22 20:30 101 H 12/13/22 20:30 131 H 12/13/22 20:30 120/74 12/13/22 20:28 93 12/13/22 20:28 115 H 12/13/22 20:25 97 12/13/22 20:25 96 H 12/13/22 20:20 97 12/13/22 20:20 105 H 12/13/22 20:17 92 12/13/22 20:17 100 H 12/13/22 20:15 97 12/13/22 20:15 105 H 12/13/22 20:15 122/70 12/13/22 20:10 98 12/13/22 20:10 123 H 12/13/22 20:05 98 12/13/22 20:05 96 H 12/13/22 20:00 98 12/13/22 20:00 129 H 12/13/22 20:00 106 H 12/13/22 20:00 122/70 12/13/22 19:59 91 12/13/22 19:59 113 H 12/13/22 19:55 97 12/13/22 19:55 103 H 12/13/22 19:50 96 12/13/22 19:50 111 H 12/13/22 19:49 93 12/13/22 19:49 102 H 12/13/22 19:45 98 12/13/22 19:45 116 H 12/13/22 19:45 109 H 12/13/22 19:45 126/74 12/13/22 19:40 99 12/13/22 19:40 109 H 12/13/22 19:35 98 12/13/22 19:35 102 H 12/13/22 19:34 94 12/13/22 19:34 105 H 12/13/22 19:31 101 H 12/13/22 19:31 133/79 12/13/22 19:30 99 12/13/22 19:30 104 H 12/13/22 19:25 98 12/13/22 19:25 96 H 12/13/22 19:20 98 12/13/22 19:20 99 H 12/13/22 19:16 117 H 12/13/22 19:16 132/73 12/13/22 19:15 98 12/13/22 19:15 99 H 12/13/22 19:10 98 12/13/22 19:10 97 H 12/13/22 19:05 97 12/13/22 19:05 101 H 12/13/22 19:01 96 H 12/13/22 19:01 112/69 12/13/22 19:00 97 12/13/22 19:00 105 H 12/13/22 18:55 99 12/13/22 18:55 109 H 12/13/22 18:50 97 12/13/22 18:50 100 H 12/13/22 18:45 98 12/13/22 18:45 102 H 12/13/22 18:42 76 L 12/13/22 18:42 106 H 12/13/22 18:40 98 12/13/22 18:40 115 H 12/13/22 18:35 98 12/13/22 18:35 107 H 12/13/22 18:33 78 L 12/13/22 18:33 102 H 12/13/22 18:31 115 H 12/13/22 18:31 121/81 12/13/22 18:30 97 12/13/22 18:30 125 H 12/13/22 18:27 90 12/13/22 18:27 107 H 12/13/22 18:25 98 12/13/22 18:25 107 H 12/13/22 18:20 98 12/13/22 18:20 108 H 12/13/22 18:18 93 12/13/22 18:18 103 H 12/13/22 18:15 99 12/13/22 18:15 105 H 12/13/22 18:12 87 L 12/13/22 18:12 100 H 12/13/22 18:10 99 12/13/22 18:10 129 H 12/13/22 18:06 82 L 12/13/22 18:06 100 H 12/13/22 18:05 100 12/13/22 18:05 101 H 12/13/22 18:00 100 12/13/22 18:00 109 H 12/13/22 17:58 22 12/13/22 17:58 36.9 C 22 12/13/22 17:57 94 12/13/22 17:57 104 H 12/13/22 17:55 100 12/13/22 17:55 103 H 12/13/22 17:50 100 12/13/22 17:50 94 H 12/13/22 17:45 100 12/13/22 17:45 96 H 12/13/22 17:45 93 H 12/13/22 17:45 128/71 12/13/22 17:40 99 12/13/22 17:40 104 H 12/13/22 17:35 100 12/13/22 17:35 99 H 12/13/22 17:31 95 H 12/13/22 17:31 130/70 12/13/22 17:30 98 12/13/22 17:30 101 H 12/13/22 17:25 100 12/13/22 17:25 94 H 12/13/22 17:20 100 12/13/22 17:20 94 H 12/13/22 17:15 100 12/13/22 17:15 102 H 12/13/22 17:15 130/71 12/13/22 17:10 100 12/13/22 17:10 104 H 12/13/22 17:05 100 12/13/22 17:05 104 H 12/13/22 17:03 89 L 12/13/22 17:03 98 H 12/13/22 17:01 96 H 12/13/22 17:01 126/68 12/13/22 17:00 100 12/13/22 17:00 96 H 12/13/22 16:55 100 12/13/22 16:55 115 H 12/13/22 16:54 90 12/13/22 16:54 100 H 12/13/22 16:50 99 12/13/22 16:50 96 H 12/13/22 16:45 100 12/13/22 16:45 100 H 12/13/22 16:45 128/72 12/13/22 16:40 100 12/13/22 16:40 90 12/13/22 16:35 100 12/13/22 16:35 90 12/13/22 16:30 100 12/13/22 16:30 91 H 12/13/22 16:30 122/67 12/13/22 16:25 100 12/13/22 16:25 95 H 12/13/22 16:20 100 12/13/22 16:20 110 H 12/13/22 16:18 88 L 12/13/22 16:18 90 12/13/22 16:16 93 H 12/13/22 16:16 120/74 12/13/22 16:15 36.7 C 12/13/22 16:15 100 12/13/22 16:15 100 H 12/13/22 16:10 98 12/13/22 16:10 109 H 12/13/22 16:05 99 12/13/22 16:05 111 H 12/13/22 16:00 98 12/13/22 16:00 101 H 12/13/22 16:00 102 H 12/13/22 16:00 117/71 12/13/22 15:55 100 12/13/22 15:55 114 H 12/13/22 15:50 100 12/13/22 15:50 108 H 12/13/22 15:45 100 12/13/22 15:45 111 H 12/13/22 15:43 110 H 12/13/22 15:43 128/78 12/13/22 15:40 100 12/13/22 15:40 107 H 12/13/22 15:35 98 12/13/22 15:35 127 H 12/13/22 15:34 112 H 12/13/22 15:34 114/66 12/13/22 15:30 97 12/13/22 15:30 118 H 12/13/22 15:30 120 H 12/13/22 15:30 116/66 12/13/22 15:25 97 12/13/22 15:25 120 H 12/13/22 15:24 136 H 12/13/22 15:24 104/62 12/13/22 15:20 19 12/13/22 15:20 36.8 C 19 12/13/22 15:20 98 12/13/22 15:20 129 H 12/13/22 15:19 127 H 12/13/22 15:19 118/64 12/13/22 15:15 96 12/13/22 15:15 133 H 12/13/22 15:10 98 12/13/22 15:10 125 H 12/13/22 15:10 185/76 H 12/13/22 15:08 123 H 12/13/22 15:08 117/64 12/13/22 15:06 129 H 12/13/22 15:06 107/58 L 12/13/22 15:05 98 12/13/22 15:05 133 H 12/13/22 15:03 95 H 12/13/22 15:03 102/55 L 12/13/22 15:01 85 12/13/22 15:01 93/49 L 12/13/22 15:00 98 12/13/22 15:00 92 H 12/13/22 14:58 94 H 12/13/22 14:58 87/49 L 12/13/22 14:56 102 H 12/13/22 14:56 106/55 L 12/13/22 14:55 98 12/13/22 14:55 106 H 12/13/22 14:54 96 H 12/13/22 14:54 103/51 L 12/13/22 14:52 96 H 12/13/22 14:52 112/56 L 12/13/22 14:50 97 12/13/22 14:50 86 12/13/22 14:50 95 H 12/13/22 14:50 111/57 L 12/13/22 14:48 92 H 12/13/22 14:48 112/58 L 12/13/22 14:45 98 12/13/22 14:45 92 H 12/13/22 14:40 95 12/13/22 14:40 99 H 12/13/22 14:35 96 12/13/22 14:35 113 H 12/13/22 14:30 99 12/13/22 14:30 91 H 12/13/22 14:25 100 12/13/22 14:25 89 12/13/22 14:20 100 12/13/22 14:20 108 H 12/13/22 13:37 36.5 C 12/13/22 12:40 18 12/13/22 12:40 18 12/13/22 12:40 80 12/13/22 12:40 116/72 12/13/22 10:43 18 12/13/22 10:43 36.8 C 18 12/13/22 10:43 106 H 12/13/22 10:43 116/58 L Coding Level of Care Code None
[2022-12-13] MEDS ORDERED: AZITHROMYCIN 500 MG in DEXTROSE 5% 250 ML IV STA (21:56)
--- NOTE | 2022-12-13 21:56 | History & Physical Bridge Note ---
Date of Service December 13, 2022 History & Physical Bridge Note I have examined the patient, reviewed the History & Physical and in the interval since the performance of the History & Physical I have noted the following changes of clinical significance: Patient has pushed for 3.75h, agreeable at this time to section. I reviewed informed consent with her - risks of bleeding, scars, infection, damage to surrounding organs. Risk of blood clots/pneumonia. Risk of hemorrhage - she is agreeable to emergency blood transfusion if necessary. Will proceed to OR.
[2022-12-13] MEDS ORDERED: DC INTRASPINAL MORPHINE SCH (22:00)
[2022-12-13] MEDS ORDERED: ceFAZolin 2000MG 2,000 MG/15 ML SYR IV SCH (22:00)
[2022-12-13] MEDS ORDERED: LACTATED RINGER'S 1,000 ML IV SCH ×2 (22:00→23:45)
[2022-12-13] MEDS ORDERED: NO NARCOTICS OR SEDATIVES SCH (22:00)
[2022-12-13] MEDS ORDERED: SODIUM CHLORIDE 0.9% 1,000 ML IV SCH (22:00)
[2022-12-13] MEDS ORDERED: CITRIC ACID/SODIUM CITRATE 15 ML UDC ONE (22:01)
[2022-12-13] MEDS ORDERED: MoRPHine SULFATE PF 1 MG/ML 10 ML AMP/VIAL ONE (22:06)
[2022-12-13] MEDS ORDERED: PHENYLEPHRINE HCL 10 MG/ML VIAL ONE (22:06)
[2022-12-13] MEDS ORDERED: OXYTOCIN 10 UNITS/ML VIAL ONE (22:06)
[2022-12-13] MEDS ORDERED: CITRIC ACID/SODIUM CITRATE 15 ML UDC PO SCH (22:15)
[2022-12-13] MEDS ORDERED: MAGNESIUM HYDROXIDE SUSP 30 ML UDC PO PRN (23:35)
[2022-12-13] MEDS ORDERED: HYDROCORTISONE ACETATE 25 MG SUPP PR PRN (23:35)
[2022-12-13] MEDS ORDERED: DIPHTHERIA/TETANUS/PERTUSSIS Vaccine (Tdap, Age 7+yrs) 0.5mL SYR/VL IM ONE (23:35)
[2022-12-13] MEDS ORDERED: BENZOCAINE 20% SPRY 85 APPLN/85 GM CAN EXT PRN (23:35)
[2022-12-13] MEDS ORDERED: MEASLES, MUMPS & RUBELLA VIRUS VACCINE (MMR) VIAL SQ ONE (23:35)
[2022-12-13] MEDS ORDERED: SENNA 8.6 MG TAB PO PRN (23:35)
--- NOTE | 2022-12-13 23:41 | Operative Report ---
PG Post Operative Report Pre & Post Diagnosis Operation Date: 12/13/22 22:30 Pre-Op Diagnosis: 1. Failure to descend Post-Op Diagnosis: 1. Failure to descend 2. Deivery of live female child at 2253 I identified the patient and participated in the time-out.: Yes Procedure Operation Date: 12/13/22 22:30 Actual Procedures pPrimary Low Transverse Section in - Arianna Esteban DO Surgeon Arianna Esteban DO Glove Cutter Shirley Chatterjee MD Estimated Blood Loss 500 Findings Consistent with Post-Op Diagnosis Viable female , Apgars 8/9. Please see nursery records for weight. Specimens placenta, cord blood, cord gas. Drains napoles clear yellow Anesthesia Type Labor Epidural Complications none Disposition Accompanied Patient To Recovery: No Disposition: L&D Indications 27yo @ 40 0/7, spontaneous labor, progressed to complete and pushed for almost 4h. station never moved beyond 2.5+ Description of Procedure The patient was seen in her labor and delivery room, risks benefits and alternatives to surgery were reviewed. Informed consent obtained. Questions were answered. She was taken to the operating room, redose of epidural anesthesia was administered. She was then prepared and draped in the usual sterile fashion in the supine position with a leftward tilt. Timeout was confirmed. Anesthetic tested and adequate. A Pfannenstiel skin incision was made with a scalpel, and carried through to the underlying layer of fascia. Fascia was nicked at midline, and this incision was extended bilaterally. The superior aspect of the fascial incision was grasped with Jf clamps x2, elevated off the underlying rectus abdominis muscles, and dissected sharply and bluntly. In similar fashion, the inferior aspect of the fascial incision was dissected. The rectus abdominis muscles were , and the peritoneum was entered bluntly digitally. This was extended bilaterally. The bladder flap was taken down carefully using Metzenbaum scissors. Using a new scalpel, a low transverse uterine incision was created. Clear amniotic fluid noted. The infant was delivered from a cephalic presentation. The head delivered, followed by shoulders and body. Spontaneous cry on the field. The cord was doubly clamped and cut, and the infant was handed off to the waiting alcoholism worker. A segment was retained for cord gases. Cord blood was obtained. The placenta was delivered spontaneously intact. The uterus was exteriorized, and cleared of all clots and debris. The hysterotomy incision was reapproximated using 0 Vicryl in a running locked stitch. A second layer of the same suture was used to imbricate the incision. Posterior uterus was evaluated and normal. The uterus was returned to the abdomen, and gutters were cleared of clots and debris. Excellent hemostasis was observed. The fascial incision was reapproximated using 0 Vicryl in a running stitch. The subcutaneous tissue was irrigated, and reapproximated using 2-0 plain gut in a running stitch. The skin was reapproximated using 4-0 Vicryl in a running subcuticular stitch. Steri-Strips and a bandage were applied. The patient tolerated the procedure well, and will be taken to the recovery area in stable and good condition. I attest to the content of the Intraoperative Record and any orders documented therein. Any exceptions are noted below. OB Procedure Charges 23124
--- NOTE | 2022-12-14 00:18 | Anesthesia Procedure Note ---
Date of Service December 14, 2022 Anesthesia Post Epidural Note Vital Signs Vital Signs: Temp Pulse Resp BP Pulse Ox 36.6 C 98 H 18 115/71 96 12/14/22 00:10 12/14/22 00:17 12/14/22 00:10 12/14/22 00:17 12/14/22 00:14 Notes Mental Status: alert / awake / arousable and participated in evaluation Nausea / Vomiting: adequately controlled Pain: adequately controlled Airway Patency, RR, SpO2: stable & adequate BP & HR: stable & adequate Hydration State: stable & adequate Neuraxial Anesthesia: was administered and sensory block resolved Anesthetic Complications: no major complications apparent and Pt Satisfied with anesthetic care Epidural: Removed without complications and With tip intact
--- NOTE | 2022-12-14 00:19 | Anesthesiology Progress Note ---
Date of Service December 14, 2022 Anesthesia Post Procedure Vital Signs Vital Signs: Temp Pulse Resp BP Pulse Ox 12/14/22 00:17 98 H 115/71 12/14/22 00:14 102 H 96 12/14/22 00:10 36.6 C 18 12/14/22 00:09 112 H 96 12/14/22 00:07 104 H 119/70 12/14/22 00:04 98 H 95 12/14/22 00:00 36.6 C 18 12/13/22 23:59 96 12/13/22 23:59 105 H 12/13/22 23:57 107 H 12/13/22 23:57 122/72 12/13/22 23:54 96 12/13/22 23:54 116 H 12/13/22 23:50 36.6 C 18 12/13/22 23:49 99 12/13/22 23:49 115 H 12/13/22 23:48 92 12/13/22 23:48 111 H 12/13/22 23:47 115 H 12/13/22 23:47 129/77 12/13/22 23:44 100 12/13/22 23:44 106 H 12/13/22 23:43 90 12/13/22 23:43 108 H 12/13/22 23:40 36.6 C 18 12/13/22 23:39 100 12/13/22 23:39 104 H 12/13/22 23:37 106 H 12/13/22 23:37 112/57 L 12/13/22 23:36 105 H 12/13/22 23:36 124/56 L 12/13/22 23:34 97 12/13/22 23:34 108 H 12/13/22 22:19 99 12/13/22 22:19 105 H 12/13/22 22:15 102 H 12/13/22 22:15 121/75 12/13/22 22:14 100 12/13/22 22:14 97 H 12/13/22 22:09 97 12/13/22 22:09 114 H 12/13/22 22:04 99 12/13/22 22:04 112 H 12/13/22 21:59 98 12/13/22 21:59 114 H 12/13/22 21:54 97 12/13/22 21:54 119 H 12/13/22 21:51 86 L 12/13/22 21:51 136 H 12/13/22 21:49 98 12/13/22 21:49 131 H 12/13/22 21:46 133 H 12/13/22 21:46 125/82 12/13/22 21:44 98 12/13/22 21:44 109 H 12/13/22 21:39 100 12/13/22 21:39 124 H 12/13/22 21:34 98 12/13/22 21:34 118 H 12/13/22 21:32 104 H 12/13/22 21:32 123/77 12/13/22 21:29 97 12/13/22 21:29 98 H 12/13/22 21:24 95 12/13/22 21:24 102 H 12/13/22 21:19 98 12/13/22 21:19 118 H 12/13/22 21:19 90 12/13/22 21:19 103 H 12/13/22 21:14 96 12/13/22 21:14 110 H 12/13/22 21:01 18 12/13/22 21:01 36.7 C 18 12/13/22 20:45 99 12/13/22 20:45 120 H 12/13/22 20:45 125 H 12/13/22 20:45 123/76 12/13/22 20:41 93 12/13/22 20:41 109 H 12/13/22 20:40 98 12/13/22 20:40 103 H 12/13/22 20:36 92 12/13/22 20:36 119 H 12/13/22 20:35 96 12/13/22 20:35 112 H 12/13/22 20:30 95 12/13/22 20:30 101 H 12/13/22 20:30 131 H 12/13/22 20:30 120/74 12/13/22 20:28 93 12/13/22 20:28 115 H 12/13/22 20:25 97 12/13/22 20:25 96 H 12/13/22 20:20 97 12/13/22 20:20 105 H 12/13/22 20:17 92 12/13/22 20:17 100 H 12/13/22 20:15 97 12/13/22 20:15 105 H 12/13/22 20:15 122/70 12/13/22 20:10 98 12/13/22 20:10 123 H 12/13/22 20:05 98 12/13/22 20:05 96 H 12/13/22 20:00 98 12/13/22 20:00 129 H 12/13/22 20:00 106 H 12/13/22 20:00 122/70 12/13/22 19:59 91 12/13/22 19:59 113 H 12/13/22 19:55 97 12/13/22 19:55 103 H 12/13/22 19:50 96 12/13/22 19:50 111 H 12/13/22 19:49 93 12/13/22 19:49 102 H 12/13/22 19:45 98 12/13/22 19:45 116 H 12/13/22 19:45 109 H 12/13/22 19:45 126/74 12/13/22 19:40 99 12/13/22 19:40 109 H 12/13/22 19:35 98 12/13/22 19:35 102 H 12/13/22 19:34 94 12/13/22 19:34 105 H 12/13/22 19:31 101 H 12/13/22 19:31 133/79 12/13/22 19:30 99 12/13/22 19:30 104 H 12/13/22 19:25 98 12/13/22 19:25 96 H 12/13/22 19:20 98 12/13/22 19:20 99 H 12/13/22 19:16 117 H 12/13/22 19:16 132/73 12/13/22 19:15 98 12/13/22 19:15 99 H 12/13/22 19:10 98 12/13/22 19:10 97 H 12/13/22 19:05 36.6 C 18 12/13/22 19:05 97 12/13/22 19:05 101 H 12/13/22 19:01 18 12/13/22 19:01 36.6 C 18 12/13/22 19:01 96 H 12/13/22 19:01 112/69 12/13/22 19:00 97 12/13/22 19:00 105 H 12/13/22 18:55 99 12/13/22 18:55 109 H 12/13/22 18:50 97 12/13/22 18:50 100 H 12/13/22 18:45 98 12/13/22 18:45 102 H 12/13/22 18:42 76 L 12/13/22 18:42 106 H 12/13/22 18:40 98 12/13/22 18:40 115 H 12/13/22 18:35 98 12/13/22 18:35 107 H 12/13/22 18:33 78 L 12/13/22 18:33 102 H 12/13/22 18:31 115 H 12/13/22 18:31 121/81 12/13/22 18:30 97 12/13/22 18:30 125 H 12/13/22 18:27 90 12/13/22 18:27 107 H 12/13/22 18:25 98 12/13/22 18:25 107 H 12/13/22 18:20 98 12/13/22 18:20 108 H 12/13/22 18:18 93 12/13/22 18:18 103 H 12/13/22 18:15 99 12/13/22 18:15 105 H 12/13/22 18:12 87 L 12/13/22 18:12 100 H 12/13/22 18:10 99 12/13/22 18:10 129 H 12/13/22 18:06 82 L 12/13/22 18:06 100 H 12/13/22 18:05 100 12/13/22 18:05 101 H 12/13/22 18:00 100 12/13/22 18:00 109 H 12/13/22 17:58 22 12/13/22 17:58 36.9 C 22 12/13/22 17:57 94 12/13/22 17:57 104 H 12/13/22 17:55 100 12/13/22 17:55 103 H 12/13/22 17:50 100 12/13/22 17:50 94 H 12/13/22 17:45 100 12/13/22 17:45 96 H 12/13/22 17:45 93 H 12/13/22 17:45 128/71 12/13/22 17:40 99 12/13/22 17:40 104 H 12/13/22 17:35 100 12/13/22 17:35 99 H 12/13/22 17:31 95 H 12/13/22 17:31 130/70 12/13/22 17:30 98 12/13/22 17:30 101 H 12/13/22 17:25 100 12/13/22 17:25 94 H 12/13/22 17:20 100 12/13/22 17:20 94 H 12/13/22 17:15 100 12/13/22 17:15 102 H 12/13/22 17:15 130/71 12/13/22 17:10 100 12/13/22 17:10 104 H 12/13/22 17:05 100 12/13/22 17:05 104 H 12/13/22 17:03 89 L 12/13/22 17:03 98 H 12/13/22 17:01 96 H 12/13/22 17:01 126/68 12/13/22 17:00 100 12/13/22 17:00 96 H 12/13/22 16:55 100 12/13/22 16:55 115 H 12/13/22 16:54 90 12/13/22 16:54 100 H 12/13/22 16:50 99 12/13/22 16:50 96 H 12/13/22 16:45 100 12/13/22 16:45 100 H 12/13/22 16:45 128/72 12/13/22 16:40 100 12/13/22 16:40 90 12/13/22 16:35 100 12/13/22 16:35 90 12/13/22 16:30 100 12/13/22 16:30 91 H 12/13/22 16:30 122/67 12/13/22 16:25 100 12/13/22 16:25 95 H 12/13/22 16:20 100 12/13/22 16:20 110 H 12/13/22 16:18 88 L 12/13/22 16:18 90 12/13/22 16:16 93 H 12/13/22 16:16 120/74 12/13/22 16:15 36.7 C 12/13/22 16:15 100 12/13/22 16:15 100 H 12/13/22 16:10 98 12/13/22 16:10 109 H 12/13/22 16:05 99 12/13/22 16:05 111 H 12/13/22 16:00 98 12/13/22 16:00 101 H 12/13/22 16:00 102 H 12/13/22 16:00 117/71 12/13/22 15:55 100 12/13/22 15:55 114 H 12/13/22 15:50 100 12/13/22 15:50 108 H 12/13/22 15:45 100 12/13/22 15:45 111 H 12/13/22 15:43 110 H 12/13/22 15:43 128/78 12/13/22 15:40 100 12/13/22 15:40 107 H 12/13/22 15:35 98 12/13/22 15:35 127 H 12/13/22 15:34 112 H 12/13/22 15:34 114/66 12/13/22 15:30 97 12/13/22 15:30 118 H 12/13/22 15:30 120 H 12/13/22 15:30 116/66 12/13/22 15:25 97 12/13/22 15:25 120 H 12/13/22 15:24 136 H 12/13/22 15:24 104/62 12/13/22 15:20 19 12/13/22 15:20 36.8 C 19 12/13/22 15:20 98 12/13/22 15:20 129 H 12/13/22 15:19 127 H 12/13/22 15:19 118/64 12/13/22 15:15 96 12/13/22 15:15 133 H 12/13/22 15:10 98 12/13/22 15:10 125 H 12/13/22 15:10 185/76 H 12/13/22 15:08 123 H 12/13/22 15:08 117/64 12/13/22 15:06 129 H 12/13/22 15:06 107/58 L 12/13/22 15:05 98 12/13/22 15:05 133 H 12/13/22 15:03 95 H 12/13/22 15:03 102/55 L 12/13/22 15:01 85 12/13/22 15:01 93/49 L 12/13/22 15:00 98 12/13/22 15:00 92 H 12/13/22 14:58 94 H 12/13/22 14:58 87/49 L 12/13/22 14:56 102 H 12/13/22 14:56 106/55 L 12/13/22 14:55 98 12/13/22 14:55 106 H 12/13/22 14:54 96 H 12/13/22 14:54 103/51 L 12/13/22 14:52 96 H 12/13/22 14:52 112/56 L 12/13/22 14:50 97 12/13/22 14:50 86 12/13/22 14:50 95 H 12/13/22 14:50 111/57 L 12/13/22 14:48 92 H 12/13/22 14:48 112/58 L 12/13/22 14:45 98 12/13/22 14:45 92 H 12/13/22 14:40 95 12/13/22 14:40 99 H 12/13/22 14:35 96 12/13/22 14:35 113 H 12/13/22 14:30 99 12/13/22 14:30 91 H 12/13/22 14:25 100 12/13/22 14:25 89 12/13/22 14:20 100 12/13/22 14:20 108 H 12/13/22 13:37 36.5 C 12/13/22 12:40 18 12/13/22 12:40 18 12/13/22 12:40 80 12/13/22 12:40 116/72 12/13/22 10:43 18 12/13/22 10:43 36.8 C 18 12/13/22 10:43 106 H 12/13/22 10:43 116/58 L 12/13/22 08:53 18 12/13/22 08:53 36.8 C 18 12/13/22 08:53 87 12/13/22 08:53 117/56 L 12/13/22 06:37 89 119/68 12/13/22 06:36 18 12/13/22 06:36 36.7 C 18 Transfer of Care Handoff Completed per policy Notes Mental Status: alert / awake / arousable and participated in evaluation Patient Amnestic to Procedure: Yes Nausea / Vomiting: adequately controlled Pain: adequately controlled Airway Patency, RR, SpO2: stable & adequate BP & HR: stable & adequate Hydration State: stable & adequate Anesthetic Complications: no major complications apparent and Pt Satisfied with anesthetic care
[2022-12-14] MEDS: OXYTOCIN 30 UNITS in LACTATED RINGER'S 1,000 ML IV SCH ×2 (00:41→08:58)
--- NOTE | 2022-12-14 06:29 | Obstetrical Progress Note ---
Date of Service <Anna Silver MD - Last Filed: 12/14/22 07:20> December 14, 2022 Assessment & Plan <Anna Silver MD - Last Filed: 12/14/22 07:20> (1) Encounter for assessment: Plan Patient with the above mentioned history and findings was evaluated at bedside and found awake, alert, oriented in all spheres, afebrile, and in no acute distress. Vital signs showed no fever and blood pressures remained stable and has remained without symptoms of severity (e.g. vision changes, headaches, oliguria, etc.). Her blood type is O positive and most recent hemoglobin is 9.5 g/dL. Denies symptoms of anemia such as lightheadedness, tachycardia, or fatigue. She is GBS negative and rubella equivical. Overall, patient is doing well clinically. Will remove Glez catheter, progress diet, and encourage ambulation. Will continue pp care. All questions were answered. <Arianna Esteban DO - Last Filed: 12/14/22 07:23> (1) Encounter for assessment: Subjective <Anna Silver MD - Last Filed: 12/14/22 07:20> Brit is a 27 y/o female who is POD #1 following delivery at 40 0/7 weeks. She reports feeling well overall this morning. Refers moderate abdominal cramping & 5/10 pain well managed on analgesics. Voiding through Glez catheter, which contains clear urine in the collecting bag and the line and is free of blood and sediment. Not passing flatus or had a bowel movement. Has not had anything to eat due to recent episodes of nausea, but has not been feeling nauseous this morning. Has some persistent lochia with some improvement this morning. Currently . Constitutional: no fever, no chills or no sweats Denies shortness of breath or difficulty breathing. Cardiovascular: no chest pain or no palpitations Breast: no breast pain Genitourinary (female): no dysuria Neurologic: no headache(s) Denies changes in vision. Physical Exam <Anna Silver MD - Last Filed: 12/14/22 07:20> General: Alert. Oriented to person, time, and place. Afebrile. No acute distress. Eyes: pupils equal and reactive to light bilaterally, extraocular movements intact. Cardiac: Regular rate and rhythm, no murmurs/rubs/gallops. Respiratory: Clear to auscultation bilaterally. No increased work of breathing. Symmetrical chest rise. No respiratory distress. Abdomen: Soft, nontender, nondistended. Bowel sounds present. Low transverse surgical scar clean, without surrounding erythema or suppuration, and healing well. Uterus: Uterine fundus firm, tender, and palpable at umbilicus. Lower Extremities: No lower extremity swelling. No deep calf pain. Juani's negative bilaterally. Results & Data <Anna Silver MD - Last Filed: 12/14/22 07:20> Vital Signs (Past 12 Hours) Vital Signs Temp Pulse Pulse Resp BP BP Pulse Ox 12/14/22 05:00 18 93 12/14/22 05:00 36.7 C 12/14/22 04:00 18 95 12/14/22 03:11 36.8 C 90 18 107/67 95 12/14/22 03:11 18 95 12/14/22 02:04 18 93 12/14/22 02:04 36.8 C 101 H 18 120/74 93 12/14/22 01:40 36.7 C 18 12/14/22 01:39 86 97 12/14/22 01:37 96 H 118/71 12/14/22 01:34 93 H 97 12/14/22 01:29 109 H 96 12/14/22 01:27 92 H 122/71 12/14/22 01:24 87 97 12/14/22 01:19 91 H 97 12/14/22 01:17 88 124/70 12/14/22 01:14 108 H 96 12/14/22 01:10 36.6 C 18 12/14/22 01:09 100 H 96 12/14/22 01:07 98 H 120/64 12/14/22 01:04 99 H 97 12/14/22 00:59 105 H 97 12/14/22 00:57 101 H 115/60 12/14/22 00:54 98 H 96 12/14/22 00:49 99 H 96 12/14/22 00:47 106 H 115/77 12/14/22 00:44 109 H 95 12/14/22 00:40 36.6 C 18 12/14/22 00:40 36.6 C 18 12/14/22 00:39 97 12/14/22 00:39 96 H 12/14/22 00:39 95 H 118/73 12/14/22 00:34 98 H 96 12/14/22 00:30 36.6 C 18 12/14/22 00:29 109 H 96 12/14/22 00:27 93 H 120/72 12/14/22 00:24 101 H 96 12/14/22 00:20 36.6 C 18 12/14/22 00:19 100 H 96 12/14/22 00:17 98 H 115/71 12/14/22 00:14 102 H 96 12/14/22 00:10 36.6 C 18 12/14/22 00:09 112 H 96 12/14/22 00:07 104 H 119/70 12/14/22 00:04 98 H 95 12/14/22 00:00 36.6 C 18 12/13/22 23:59 96 12/13/22 23:59 105 H 12/13/22 23:57 107 H 12/13/22 23:57 122/72 12/13/22 23:54 96 12/13/22 23:54 116 H 12/13/22 23:50 36.6 C 18 12/13/22 23:49 99 12/13/22 23:49 115 H 12/13/22 23:48 92 12/13/22 23:48 111 H 12/13/22 23:47 115 H 12/13/22 23:47 129/77 12/13/22 23:44 100 12/13/22 23:44 106 H 12/13/22 23:43 90 12/13/22 23:43 108 H 12/13/22 23:40 36.6 C 18 12/13/22 23:39 100 12/13/22 23:39 104 H 12/13/22 23:37 106 H 12/13/22 23:37 112/57 L 12/13/22 23:36 105 H 12/13/22 23:36 124/56 L 12/13/22 23:34 97 12/13/22 23:34 108 H 12/13/22 22:19 99 12/13/22 22:19 105 H 12/13/22 22:15 102 H 12/13/22 22:15 121/75 12/13/22 22:14 100 12/13/22 22:14 97 H 12/13/22 22:09 97 12/13/22 22:09 114 H 12/13/22 22:04 99 12/13/22 22:04 112 H 12/13/22 21:59 98 12/13/22 21:59 114 H 12/13/22 21:54 97 12/13/22 21:54 119 H 12/13/22 21:51 86 L 12/13/22 21:51 136 H 12/13/22 21:49 98 12/13/22 21:49 131 H 12/13/22 21:46 133 H 12/13/22 21:46 125/82 12/13/22 21:44 98 12/13/22 21:44 109 H 12/13/22 21:39 100 12/13/22 21:39 124 H 12/13/22 21:34 98 12/13/22 21:34 118 H 12/13/22 21:32 104 H 12/13/22 21:32 123/77 12/13/22 21:29 97 12/13/22 21:29 98 H 12/13/22 21:24 95 12/13/22 21:24 102 H 12/13/22 21:19 98 12/13/22 21:19 118 H 12/13/22 21:19 90 12/13/22 21:19 103 H 12/13/22 21:14 96 12/13/22 21:14 110 H 12/13/22 21:01 18 12/13/22 21:01 36.7 C 18 12/13/22 20:45 99 12/13/22 20:45 120 H 12/13/22 20:45 125 H 12/13/22 20:45 123/76 12/13/22 20:41 93 12/13/22 20:41 109 H 12/13/22 20:40 98 12/13/22 20:40 103 H 12/13/22 20:36 92 12/13/22 20:36 119 H 12/13/22 20:35 96 12/13/22 20:35 112 H 12/13/22 20:30 95 12/13/22 20:30 101 H 12/13/22 20:30 131 H 12/13/22 20:30 120/74 12/13/22 20:28 93 12/13/22 20:28 115 H 12/13/22 20:25 97 12/13/22 20:25 96 H 12/13/22 20:20 97 12/13/22 20:20 105 H 12/13/22 20:17 92 12/13/22 20:17 100 H 12/13/22 20:15 97 12/13/22 20:15 105 H 12/13/22 20:15 122/70 12/13/22 20:10 98 12/13/22 20:10 123 H 12/13/22 20:05 98 12/13/22 20:05 96 H 12/13/22 20:00 98 12/13/22 20:00 129 H 12/13/22 20:00 106 H 12/13/22 20:00 122/70 12/13/22 19:59 91 12/13/22 19:59 113 H 12/13/22 19:55 97 12/13/22 19:55 103 H 12/13/22 19:50 96 12/13/22 19:50 111 H 12/13/22 19:49 93 12/13/22 19:49 102 H 12/13/22 19:45 98 12/13/22 19:45 116 H 12/13/22 19:45 109 H 12/13/22 19:45 126/74 12/13/22 19:40 99 12/13/22 19:40 109 H 12/13/22 19:35 98 12/13/22 19:35 102 H 12/13/22 19:34 94 12/13/22 19:34 105 H 12/13/22 19:31 101 H 12/13/22 19:31 133/79 12/13/22 19:30 99 12/13/22 19:30 104 H 12/13/22 19:25 98 12/13/22 19:25 96 H 12/13/22 19:20 98 12/13/22 19:20 99 H 12/13/22 19:16 117 H 12/13/22 19:16 132/73 12/13/22 19:15 98 12/13/22 19:15 99 H 12/13/22 19:10 98 12/13/22 19:10 97 H 12/13/22 19:05 36.6 C 18 12/13/22 19:05 97 12/13/22 19:05 101 H 12/13/22 19:01 18 12/13/22 19:01 36.6 C 18 12/13/22 19:01 96 H 12/13/22 19:01 112/69 12/13/22 19:00 97 12/13/22 19:00 105 H 12/13/22 18:55 99 12/13/22 18:55 109 H 12/13/22 18:50 97 12/13/22 18:50 100 H 12/13/22 18:45 98 12/13/22 18:45 102 H 12/13/22 18:42 76 L 12/13/22 18:42 106 H 12/13/22 18:40 98 12/13/22 18:40 115 H 12/13/22 18:35 98 12/13/22 18:35 107 H 12/13/22 18:33 78 L 12/13/22 18:33 102 H 12/13/22 18:31 115 H 12/13/22 18:31 121/81 12/13/22 18:30 97 12/13/22 18:30 125 H 12/13/22 18:27 90 12/13/22 18:27 107 H 12/13/22 18:25 98 12/13/22 18:25 107 H O2 Del Method 12/14/22 05:00 12/14/22 05:00 12/14/22 04:00 12/14/22 03:11 Room Air 12/14/22 03:11 12/14/22 02:04 12/14/22 02:04 Room Air 12/14/22 01:40 12/14/22 01:39 12/14/22 01:37 12/14/22 01:34 12/14/22 01:29 12/14/22 01:27 12/14/22 01:24 12/14/22 01:19 12/14/22 01:17 12/14/22 01:14 12/14/22 01:10 12/14/22 01:09 12/14/22 01:07 12/14/22 01:04 12/14/22 00:59 12/14/22 00:57 12/14/22 00:54 12/14/22 00:49 12/14/22 00:47 12/14/22 00:44 12/14/22 00:40 12/14/22 00:40 12/14/22 00:39 12/14/22 00:39 12/14/22 00:39 12/14/22 00:34 12/14/22 00:30 12/14/22 00:29 12/14/22 00:27 12/14/22 00:24 12/14/22 00:20 12/14/22 00:19 12/14/22 00:17 12/14/22 00:14 12/14/22 00:10 12/14/22 00:09 12/14/22 00:07 12/14/22 00:04 12/14/22 00:00 12/13/22 23:59 12/13/22 23:59 12/13/22 23:57 12/13/22 23:57 12/13/22 23:54 12/13/22 23:54 12/13/22 23:50 12/13/22 23:49 12/13/22 23:49 12/13/22 23:48 12/13/22 23:48 12/13/22 23:47 12/13/22 23:47 12/13/22 23:44 12/13/22 23:44 12/13/22 23:43 12/13/22 23:43 12/13/22 23:40 12/13/22 23:39 12/13/22 23:39 12/13/22 23:37 12/13/22 23:37 12/13/22 23:36 12/13/22 23:36 12/13/22 23:34 12/13/22 23:34 12/13/22 22:19 12/13/22 22:19 12/13/22 22:15 12/13/22 22:15 12/13/22 22:14 12/13/22 22:14 12/13/22 22:09 12/13/22 22:09 12/13/22 22:04 12/13/22 22:04 12/13/22 21:59 12/13/22 21:59 12/13/22 21:54 12/13/22 21:54 12/13/22 21:51 12/13/22 21:51 12/13/22 21:49 12/13/22 21:49 12/13/22 21:46 12/13/22 21:46 12/13/22 21:44 12/13/22 21:44 12/13/22 21:39 12/13/22 21:39 12/13/22 21:34 12/13/22 21:34 12/13/22 21:32 12/13/22 21:32 12/13/22 21:29 12/13/22 21:29 12/13/22 21:24 12/13/22 21:24 12/13/22 21:19 12/13/22 21:19 12/13/22 21:19 12/13/22 21:19 12/13/22 21:14 12/13/22 21:14 12/13/22 21:01 12/13/22 21:01 12/13/22 20:45 12/13/22 20:45 12/13/22 20:45 12/13/22 20:45 12/13/22 20:41 12/13/22 20:41 12/13/22 20:40 12/13/22 20:40 12/13/22 20:36 12/13/22 20:36 12/13/22 20:35 12/13/22 20:35 12/13/22 20:30 12/13/22 20:30 12/13/22 20:30 12/13/22 20:30 12/13/22 20:28 12/13/22 20:28 12/13/22 20:25 12/13/22 20:25 12/13/22 20:20 12/13/22 20:20 12/13/22 20:17 12/13/22 20:17 12/13/22 20:15 12/13/22 20:15 12/13/22 20:15 12/13/22 20:10 12/13/22 20:10 12/13/22 20:05 12/13/22 20:05 12/13/22 20:00 12/13/22 20:00 12/13/22 20:00 12/13/22 20:00 12/13/22 19:59 12/13/22 19:59 12/13/22 19:55 12/13/22 19:55 12/13/22 19:50 12/13/22 19:50 12/13/22 19:49 12/13/22 19:49 12/13/22 19:45 12/13/22 19:45 12/13/22 19:45 12/13/22 19:45 12/13/22 19:40 12/13/22 19:40 12/13/22 19:35 12/13/22 19:35 12/13/22 19:34 12/13/22 19:34 12/13/22 19:31 12/13/22 19:31 12/13/22 19:30 12/13/22 19:30 12/13/22 19:25 12/13/22 19:25 12/13/22 19:20 12/13/22 19:20 12/13/22 19:16 12/13/22 19:16 12/13/22 19:15 12/13/22 19:15 12/13/22 19:10 12/13/22 19:10 12/13/22 19:05 12/13/22 19:05 12/13/22 19:05 12/13/22 19:01 12/13/22 19:01 12/13/22 19:01 12/13/22 19:01 12/13/22 19:00 12/13/22 19:00 12/13/22 18:55 12/13/22 18:55 12/13/22 18:50 12/13/22 18:50 12/13/22 18:45 12/13/22 18:45 12/13/22 18:42 12/13/22 18:42 12/13/22 18:40 12/13/22 18:40 12/13/22 18:35 12/13/22 18:35 12/13/22 18:33 12/13/22 18:33 12/13/22 18:31 12/13/22 18:31 12/13/22 18:30 12/13/22 18:30 12/13/22 18:27 12/13/22 18:27 12/13/22 18:25 12/13/22 18:25 Supervising Physician <Arianna Esteban DO - Last Filed: 12/14/22 07:23> Co-Signing Physician Notes Resident Physician Supervision Note: I was present with Dr. Silver during the history and exam. I discussed the case with the resident and agree with the findings and plan as documented in the note. Any exceptions or clarifications are listed here: POD#1 doing well. Bandage CDI, will plan to remove later today. Plans for ambulation, advance diet today. Documented By: Arianna Esteban DO Resident Activity Tracking <Anna Silver MD - Last Filed: 12/14/22 07:20> Resident Involvement: Resident Care Provided Care Provided: OB Delivery
[2022-12-14 07:45] LABS: Basophils # (auto) 0.04 K/uL (0.00-0.20); Basophils % (auto) 0.2 %; Eosinophils # (auto) 0.01 K/uL (0.00-0.50); Eosinophils % (auto) 0.1 %; Hematocrit (blood only) 28.5 % (37.0-47.0); Hemoglobin 8.7 g/dl (12.0-16.0); Immature Granulocytes % (auto) 0.6 %; Lymphocytes # (auto) 1.99 K/uL (1.20-3.40); Mean Corpuscular Hemoglobin 23.5 pg (25.0-34.0); Mean Corpuscular Hgb Conc 30.5 g/dL (32.0-36.0); Mean Platelet Volume 12.5 fL (9.4-12.4); Monocytes # (auto) 0.88 K/uL (0.11-0.59); Monocytes % (auto) 5.3 %; Neutrophils % (auto) 81.8 %; Platelet Count 190 K/uL (130-400); RDW Coefficient of Variation 14.6 % (11.5-14.5); RDW Standard Deviation 40.9 fL (36.4-46.3); White Blood Count 16.62 K/ul (4.8-10.8)
[2022-12-14] MEDS: FERROUS SULFATE 325 MG TAB PO SCH (08:11)
[2022-12-14] MEDS: SIMETHICONE 80 MG CHEW PO SCH ×4 (08:12→21:06)
[2022-12-14] MEDS: PRENATAL VITAMIN 1 TAB PO SCH (08:12)
[2022-12-14] MEDS: DOCUSATE SODIUM 100 MG CAP PO SCH ×2 (08:12→21:06)
[2022-12-14] MEDS ORDERED: PROMETHAZINE HCL 25 MG in SODIUM CHLORIDE 0.9% 50 ML IV PRN (15:48)
[2022-12-14] MEDS ORDERED: ONDANSETRON INJ 2 MG/ML 2 ML VIAL IV PRN (15:48)
[2022-12-14] MEDS ORDERED: KETOROLAC 30 MG/ML VIAL IV PRN (15:48)
[2022-12-14] MEDS ORDERED: diphenhydrAMINE 50 MG/ML VIAL IV PRN (15:48)
[2022-12-14] MEDS ORDERED: diphenhydrAMINE Capsule 25 MG CAP PO PRN (15:48)
[2022-12-14] MEDS: IBUPROFEN 600 MG TAB PO PRN ×2 (15:49→21:06)
[2022-12-14] MEDS: oxyCODONE/ACETAMINOPHEN 5mg/325mg TAB PO PRN ×2 (15:49→21:06)
[2022-12-14] MEDS ORDERED: bisacodyL 5 MG TABEC PO SCH (20:00)
[2022-12-15] MEDS ORDERED: bisacodyL 10 MG SUPP PR PRN
[2022-12-15] MEDS: oxyCODONE/ACETAMINOPHEN 5mg/325mg TAB PO PRN ×2 (05:30→10:23)
[2022-12-15] MEDS: IBUPROFEN 600 MG TAB PO PRN ×2 (05:31→10:22)
--- NOTE | 2022-12-15 06:38 | Obstetrical Progress Note ---
Date of Service <Anna Silver MD - Last Filed: 12/15/22 07:21> December 15, 2022 Assessment & Plan <Anna Silver MD - Last Filed: 12/15/22 07:21> (1) Encounter for assessment: Plan Patient with the above mentioned history and findings was evaluated at bedside and found awake, alert, oriented in all spheres, afebrile, and in no acute distress. Vital signs showed no fever and blood pressures remained stable and has remained without symptoms of severity (e.g. vision changes, headaches, oliguria, etc.). Her blood type is O positive and most recent hemoglobin is 8.7 g/dL. Denies symptoms of anemia such as lightheadedness, tachycardia, or fatigue. She is GBS negative and rubella equivocal. Overall, patient is doing well clinically. Will continue pp care. All questions were answered. <Nohemy Chatterjee MD, FACOG - Last Filed: 12/15/22 07:26> (1) Encounter for assessment: Subjective <Anna Silver MD - Last Filed: 12/15/22 07:21> Brit is a 27 y/o female who is POD #2 following delivery at 40 0/7 weeks. She reports feeling well overall this morning. Refers moderate abdominal cramping & 5/10 pain well managed on analgesics. Voiding spontaneously. Passing flatus but has not yet had a bowel movement. Eating well without nausea and ambulating some. Has some persistent lochia with some improvement this morning. Currently . Constitutional: no fever, no chills or no sweats Denies shortness of breath or difficulty breathing. Cardiovascular: no chest pain or no palpitations Breast: no breast pain Genitourinary (female): no dysuria Neurologic: no headache(s) Denies changes in vision. Physical Exam <Anna Silver MD - Last Filed: 12/15/22 07:21> General: Alert. Oriented to person, time, and place. Afebrile. No acute distress. Eyes: pupils equal and reactive to light bilaterally, extraocular movements intact. Cardiac: Regular rate and rhythm, no murmurs/rubs/gallops. Respiratory: Clear to auscultation bilaterally. No increased work of breathing. Symmetrical chest rise. No respiratory distress. Abdomen: Soft, nontender, nondistended. Bowel sounds present. Low transverse surgical scar clean, without surrounding erythema or suppuration, and healing well. Uterus: Uterine fundus firm, moderately tender, and palpable below umbilicus. Lower Extremities: No lower extremity swelling. No deep calf pain. Juani's negative bilaterally. Results & Data <Anna Silver MD - Last Filed: 12/15/22 07:21> Vital Signs (Past 12 Hours) Vital Signs Temp Pulse Resp BP Pulse Ox O2 Del Method 12/15/22 01:00 36.6 C 92 H 18 118/73 96 Room Air 12/14/22 21:00 Room Air 12/14/22 21:00 36.5 C 102 H 18 105/71 94 Room Air Supervising Physician <Nohemy Chatterjee MD, FACOG - Last Filed: 12/15/22 07:26> Co-Signing Physician Notes Resident Physician Supervision Note: I interviewed and examined the patient. Discussed with Dr. Silver and agree with findings and plan as documented in the note. Any exceptions or clarifications are listed here: Doing well, postop day 1.5. The biggest concern/issue for her is pain management. Unfortunately nothing with this labor/delivery has gone to plan. discussed that some pain is going to be normal and cannot take it all away. discussed what to expect with her incisional pain, worst for the first week and then better. Normal to feel stretching and pulling but not hurting anything inside. Discussed continued use of regular pain medications. She notes she is so tired and just wants to "feel normal". Notes she has really not had any sleep and frustrated by this as well. Discussed this in detail. Documented By: Nohemy Chatterjee MD, FACOG Resident Activity Tracking <Anna Silver MD - Last Filed: 12/15/22 07:21> Resident Involvement: Resident Care Provided Care Provided: OB Delivery
[2022-12-15 07:56] LABS: Hematocrit (blood only) 31.1 % (37.0-47.0); Hemoglobin 9.4 g/dl (12.0-16.0)
[2022-12-15] MEDS: PRENATAL VITAMIN 1 TAB PO SCH (08:34)
[2022-12-15] MEDS: FERROUS SULFATE 325 MG TAB PO SCH (08:34)
[2022-12-15] MEDS: SIMETHICONE 80 MG CHEW PO SCH ×2 (08:34→13:09)
[2022-12-15] MEDS: DOCUSATE SODIUM 100 MG CAP PO SCH (08:34)
--- NOTE | 2022-12-16 08:48 | Discharge Summary ---
Date of Service December 16, 2022 Admission HPI Per Admitting Provider 27yo @ 40 0/, presents after ROM at home for clear fluid at 0200 this morning. Feeling ctx Q 4-5 min. Rubella equivocal. Prior with hemorrhage - needed blood transfusion. Patient does not really recall details - but did not need to go back to OR. Discharge Data Procedures Performed Operation Date: 12/13/22 22:30 Actual Procedures p Section in - Arianna Esteban DO Hospital Course (1) Encounter for supervision of normal in multigravida, antepartum: Presented with PROM, progressed to complete dilation, pushed for 3+ hours, delivery by section. Routine postop care. Discharged home. Please see chart for details. Coding Level of Care Code None Diagnoses Encounter for supervision of normal in multigravida, antepartum Z34.80
== END 2022-12-15 13:39 | disposition home or self-care (01) | DRG 788 ==
LOC: OPB 06:27 → 4S1 06:31 → 4E2 12-14 02:25

== ENCOUNTER 2024-09-08 05:41 | Inpatient (IN) ==
--- NOTE | 2024-08-31 08:40 | Anesthesiology Consultation ---
Date of Service August 31, 2024 Assessment & Plan (1) Encounter for pre-operative examination: - Infectious disease screening: Per assessment on 08/31/24- No known recent infectious disease contacts. Denies current infectious disease symptoms. - S/P Primary (12/13/22): Failure to progress --> . CSE. No issues noted per post-op anesthesia progress note. Chart Review Chart Review: entry table operator initiated History Surgery Operation Date: 09/08/24 07:30 Proposed Procedures p Section (Delivery of Baby Through Abdominal Incision) - Nohemy Chatterjee MD, FACOG Height/Weight Height: 5 ft 1 in Weight: 70.307 kg Allergies Allergy/AdvReac Type Severity Reaction Status Date / Time No Known Allergies Allergy Verified 08/31/24 10:43 Medications Home Medications Medication Instructions Recorded Confirmed Last Taken pantoprazole 20 mg tablet,delayed 20 mg PO DAILY #30 tabs 07/31/24 08/31/24 Unknown release (Protonix) albuterol sulfate 90 mcg/actuation 1 - 2 puff inhalation QID PRN sob 08/31/24 08/31/24 Unknown aerosol inhaler Past Medical History Medical History (Updated 08/31/24 @ 11:33 by Josefina Colon) Abnormal ultrasound of uterus Acid reflux Only during Adrenal insufficiency Congenital heart defect Born premature with "hole in heart" No surgical intervention was needed, followed with cardio as child/since discharged Gastric ulcer Hx ~2018 Heart murmur Per records "no murmur" per most recent [facility] PCP visit 09/06/23 Migraines ~Once per month Palpitations Occasional Poor historian Rubella non-immune status, antepartum Scar tissue 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
--- NOTE | 2024-09-07 11:41 | History & Physical Report ---
Date of Service September 07, 2024 Assessment & Plan (1) with 39 completed weeks gestation: Plan After long discussion, and tears, patient has decided to proceed with repeat c/s. The risks of surgery were discussed with the patient including the risks of anesthesia, bleeding requiring transfusion, infection, poor wound healing, urinary retention, damage to surrounding structures including bowels, bladder, vessels, nerves and ureters that may require further surgery, hospitalization or intervention. The other risks of any surgery were discussed including heart attack, blood clots, stroke or . Also discussed the potential risk of injury to the baby. Consent reviewed and signed. History of Present Illness Chief Complaint: repeat c/s Primary Care Provider: Josefina Hopson MD, FACOG Patient is a 29yowf with iup at 39 0/7 weeks who presents for a repeat c/s. Patient notes contractions that may be a little stronger. no lof/vb. +fm. Last c/s was for FTD--got to 2.5 station and not beyond, OP, 8.5#. First baby was vaginal delivery and only 6.5#, different fob. Patient is very torn and we had a long conversation about the r/b/se of FEDERICA. Her cervix is 2+/50/- 2/post/soft. I would be willing to induce, but outcome could be same as last time with FTD and c/s after FEDERICA which has more risk to her. She could of course at any time tell us to stop the iol and proceed with c/s. and Delivery Plans Previous Section affecting *repeat C/S at 39 weeks *desires if labor prior to default c/s. 08/24- consent signed. C/S SCHEDULED FOR 09/08/[address] BRITT *Hepatitis B not immune OB Labs: Blood Type O Positive 02/04/24 Antibody Screen NEGATIVE 02/04/24 Hgb 11.1 g/dl (12.0-16.0) L 06/22/24 Hct 36.0 % (37.0-47.0) L 06/22/24 MCV 84.7 fL (80.0-100.0) 06/22/24 Plt Count 289 K/uL (130-400) 06/22/24 Rubella IgG Antibody Immune (Immune) 02/04/24 RPR Nonreactive (Nonreactive) 06/25/22 Treponema pallidum Ab Negative (Negative) 06/22/24 Hep Bs Antigen Negative (Negative) 02/04/24 Hep Bs Antigen NON-REACTIVE (NON-REACTIVE) 06/25/22 Hepatitis C Antibody Negative (Negative) 02/04/24 Hepatitis C Ab (EIA) NON-REACTIVE (NON-REACTIVE) 06/25/22 HIV 1&2 Ab/P24 Ag 4thGn Negative (Negative) 02/04/24 HIV (1&2) Ag & Ab Conf NON-REACTIVE (NON-REACTIVE) 06/25/22 Glucose 1 Hr 50 gm 124 mg/dl (70-130) 06/22/24 OB Optional Labs: Chlamydia trachomatis RNA Not Detected (NotDetected) 02/04/24 Neisseria gonorrhoeae RNA Not Detected (NotDetected) 02/04/24 Thyroid Stimulating Hormone (TSH) 1.039 uIu/ml (0.300-4.500) 10/29/22 Labs Reviewed: no labs to pull forward from prior , HK Declines genetics--mln gbs neg Allergies Allergy/AdvReac Type Severity Reaction Status Date / Time No Known Allergies Allergy Verified 09/07/24 10:48 Home Medications Medication Instructions Recorded Confirmed Type pantoprazole 20 mg tablet,delayed 20 mg PO DAILY #30 tabs 07/31/24 09/07/24 Rx release (Protonix) albuterol sulfate 90 mcg/actuation 1 - 2 puff inhalation QID PRN sob 08/31/24 09/07/24 History aerosol inhaler Patient History Medical History Acid reflux Only during Adrenal insufficiency Migraines ~Once per month Poor historian Congenital heart defect Born premature with "hole in heart" No surgical intervention was needed, followed with cardio as child/since d ischarged Scar tissue 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, states uses an inhaler ~once per month Palpitations Occasional Rubella non-immune status, antepartum Abnormal ultrasound of uterus Gastric ulcer Hx ~2018 Heart murmur Per records "no murmur" per most recent [facility] PCP visit 09/06/23 Surgical History History of esophagogastroduodenoscopy (EGD) Hx of section 2022 Family History Grandmother (Maternal) Ovarian cancer Grandmother (Paternal) Ovarian cancer Other No family history of adverse response to anesthesia Denies family history of Prostate cancer Myocardial infarction Breast cancer Lung cancer Colorectal cancer Social History Smoking Status: Never smoker Second Hand Exposure: No; Do You Dip or Chew Tobacco: No; Hx Alcohol Use: No Hx Substance Use: No Preferred Language: Estonian Communication Ability: Effective Visual Impairment: Limited Hearing Ability: Normal Tailing Hand Required: No Beliefs That Will Affect Care: None marital status: marital status details: Jaleel (36) [phone] Current Living Situation: Family current occupational status: unemployed Feels Safe at Home: Yes Diet: regular caffeine: Yes during the past year weight has: decreased > 10 lbs Dental Care, Regularly: Yes Physical Activity Frequency: Daily Seatbelt Use: always Sunscreen Use: Yes Assistive Devices: Contacts and Glasses OB History Past Pregnancies Del. Date GA wks Lbr Lgth wt Sex Type del Anes Place Del Prov ? Comment 06/12/16 40 6lb 12oz F Epid ural Other [place] blood trnasfusion d/t loss of blood 12/13/22 40 8lb 6.4oz F C-Sectio n Epidural [facility] Dr. Carlito Cornelius Failure to descend [employer]ORAL SPECIALIST History noncontributory Physical Exam Constitutional: WD/WN, vitals as above Gastrointestinal (Abdomen): soft, gravid, nt Psychiatric: A+Ox3, euthymic affect Genitourinary: cx--2+/50/-2/soft/post Coding Level of Care Code None Diagnoses with 39 completed weeks gestation Z3A.39
[2024-09-08] MEDS: LACTATED RINGER'S 1,000 ML IV SCH ×3 (06:10→09:00)
[2024-09-08 06:23] LABS: Hematocrit (blood only) 28.5 % (37.0-47.0); Hemoglobin 8.5 g/dl (12.0-16.0); Immature Granulocytes # (auto) 0.05 K/uL (0.01-0.20); Immature Granulocytes % (auto) 0.5 %; Mean Corpuscular Hemoglobin 22.1 pg (25.0-34.0); Mean Corpuscular Volume 74.0 fL (80.0-100.0); Platelet Count 218 K/uL (130-400); RDW Standard Deviation 40.1 fL (36.4-46.3); Red Blood Count 3.85 M/uL (4.20-5.40); White Blood Count 9.46 K/ul (4.8-10.8)
[2024-09-08] MEDS ORDERED: PHENYLEPHRINE 100MCG/ML 5ML SYR ONE (06:42)
[2024-09-08] MEDS ORDERED: PHENYLEPHRINE HCL 25 MG/250 ML NSS IV ONE (06:42)
[2024-09-08] MEDS ORDERED: ONDANSETRON INJ 2 MG/ML 2 ML VIAL ONE (06:44)
[2024-09-08] MEDS ORDERED: MoRPHine SULFATE PF 1 MG/ML 10 ML AMP/VIAL ONE (06:44)
[2024-09-08] MEDS ORDERED: DEXAMETHASONE SOD INJ 4 MG/ML VIAL ONE (06:44)
[2024-09-08] MEDS ORDERED: OXYTOCIN 10 UNITS/ML VIAL ONE (06:44)
[2024-09-08] MEDS: ACETAMINOPHEN 500 MG TAB PO SCH (06:50)
--- NOTE | 2024-09-08 07:05 | History & Physical Bridge Note ---
Date of Service September 08, 2024 History & Physical Bridge Note I have examined the patient, reviewed the History & Physical and in the interval since the performance of the History & Physical I have noted the following changes of clinical significance: no changes noted
[2024-09-08] MEDS ORDERED: SODIUM CHLORIDE 0.9% 100 ML IV PRN (07:09)
[2024-09-08] MEDS: CITRIC ACID/SODIUM CITRATE 15 ML UDC PO SCH (07:16)
--- NOTE | 2024-09-08 09:02 | Operative Report ---
PG Post Operative Report Pre & Post Diagnosis Operation Date: 09/08/24 07:30 Pre-Op Diagnosis: Previous Section affecting ; Repeat C/S at 39 weeks Post-Op Diagnosis: Same; Delivery of a live male child at 0824 I identified the patient and participated in the time-out.: Yes Procedure Operation Date: 09/08/24 07:30 Actual Procedures pRepeat lower transverse Section (Delivery of Baby Through Abdominal Incision) - Nohemy Chatterjee MD, FACOG Surgeon Nohemy Chatterjee MD, FACOG Basting Machine Operator Dr. Mcconnell Estimated Blood Loss 324 (QBL) Findings Consistent with Post-Op Diagnosis viable male infant in cephalic presentation. apgars pending. normal uterus/tubes/ovs Fluids 900cc uop--100cc Specimens none Drains napoles Anesthesia Type Spinal Complications none Disposition Accompanied Patient To Recovery: No Disposition: L&D Indications 29yowf with iup at 39 weeks who presents for repeat c/s. Description of Procedure The patient was taken to the operating room where she was identified verbally a nd by leila. She was seated on the operating table where a spinal anesthetic was placed by anesthesia. She was then placed in the supine position with a leftward tilt. A Napoles catheter was placed sterilely. the patient was prepped and draped in a normal standard fashion. the anesthetic was tested and found to be adequate. A time-out was held, identifying correct patient, procedure, positioning and preoperative antibiotics. There were no concerns. A Pfannenstiel skin incision was made with a knife and taken down to the underlying layer of fascia with the knife and Bovie electrocautery. Bleeding was attended to with the Bovie. The fascia was incised in the midline with the knife and taken out laterally with scissors. The superior edge of the fascial incision was grasped, elevated and the underlying layer of rectus muscle was taken off bluntly and with scissors. In a similar fashion, the inferior edge of the fascial incision was grasped, elevated and the underlying layer of rectus muscle was taken off bluntly and with scissors. The muscles were bluntly in the midline. The peritoneum was entered bluntly. The incision was then stretched. The bladder blade was placed. The vesicouterine peritoneum was identified, entered with scissors and taken out laterally with scissors. The bladder flap was created digitally A hysterotomy incision was scored with a kn armaan and the incision was stretched superiorly and inferiorly with the alemite operator's fingers. The operators hand was placed into the incision and the head was delivered atraumatically. No nuchal cord. The nose and mouth were bulb suctioned. the rest of the was then delivered without difficulty. The nose and mouth were again bulb suctioned. The cord was clamped and cut and the infant was then handed off to the awaiting statistical secretary for drying and attention. Cord blood and segment were obtained. The placenta was Manually extracted. The uterus was exteriorized and cleared of all clot and debris with moistened laparotomy sponges. The hysterotomy incision was repaired in two layers, the first in a running locked layer, the second in an imbricating layer. Hemostasis was noted to be good. Posterior cul-de-sac was irrigated and cleared of all clot and debris. The hysterotomy incision was again inspected and found to be hemostatic. the uterus was reinteriorized. Hysterotomy incision was again inspected and found to be hemostatic. The fascia was then reapproximated with 0 Vicryl starting at the edges and meeting in the midline. The subcuticular tissues were copiously irrigated and bleeding was attended to with cautery. The skin was then closed with 4-0 Vicryl in a subcuticular fashion. All sponge, lap and needle counts were correct x 2. The patient tolerated the procedure well and was taken to the recovery room in stable condition. I attest to the content of the Intraoperative Record and any orders documented therein. Any exceptions are noted below.
--- NOTE | 2024-09-08 09:11 | Anesthesiology Progress Note ---
Date of Service September 08, 2024 Anesthesia Post Procedure Vital Signs Vital Signs: Temp Pulse Resp BP Pulse Ox 09/08/24 09:07 67 100 09/08/24 09:02 88 103/55 L 100 09/08/24 06:21 37.0 C 83 16 106/71 100 09/08/24 06:03 89 93 09/08/24 06:00 82 106/71 100 Transfer of Care Handoff Completed per policy Notes Mental Status: alert / awake / arousable and participated in evaluation Patient Amnestic to Procedure: No Nausea / Vomiting: adequately controlled Pain: adequately controlled Airway Patency, RR, SpO2: stable & adequate BP & HR: stable & adequate Hydration State: stable & adequate Neuraxial Anesthesia: was administered and sensory block resolved Anesthetic Complications: no major complications apparent and Pt Satisfied with anesthetic care
[2024-09-08] MEDS ORDERED: SENNA 8.6 MG TAB PO PRN (09:24)
[2024-09-08] MEDS ORDERED: PROMETHAZINE 12.5 MG/50.5 ML BAG IV PRN (09:24)
[2024-09-08] MEDS ORDERED: ALBUTEROL HFA 8 GM INHALER INH PRN (09:24)
[2024-09-08] MEDS ORDERED: diphenhydrAMINE 50 MG/ML VIAL IV PRN (09:24)
[2024-09-08] MEDS ORDERED: diphenhydrAMINE Capsule 25 MG CAP PO PRN (09:24)
[2024-09-08] MEDS ORDERED: BENZOCAINE 20% SPRY 85 APPLN/85 GM CAN EXT PRN (09:24)
[2024-09-08] MEDS ORDERED: DIPHTHER/TETAN/PERTUS Vaccine (Tdap, Adol/Adult) 0.5mL IM ONE (09:24)
[2024-09-08] MEDS ORDERED: HYDROCORTISONE ACETATE 25 MG SUPP PR PRN (09:24)
[2024-09-08] MEDS ORDERED: MAGNESIUM HYDROXIDE SUSP 30 ML UDC PO PRN (09:24)
[2024-09-08] MEDS: KETOROLAC 30 MG/ML VIAL IV PRN (09:30)
[2024-09-08] MEDS: ONDANSETRON INJ 2 MG/ML 2 ML VIAL IV PRN (11:18)
[2024-09-08] MEDS: KETOROLAC 30 MG/ML VIAL IV SCH (11:52)
[2024-09-08] MEDS: KETOROLAC 30 MG/ML VIAL ONE (11:54)
[2024-09-08] MEDS: SIMETHICONE 80 MG CHEW PO SCH (13:05)
[2024-09-08] MEDS: ACETAMINOPHEN 325 MG TAB PO SCH (15:12)
[2024-09-08] MEDS: SCOPOLAMINE 1 MG/72 HR TDSY PATCH TD SCH (15:13)
[2024-09-08] MEDS: IRON SUCROSE 200 MG in SODIUM CHLORIDE 0.9% 100 ML IV ONE (16:23)
[2024-09-08] MEDS: OXYTOCIN 20 UNITS/LR 1,002 ML IV SCH (16:24)
[2024-09-08] MEDS: CHECK SCOPOLAMINE PATCH PLACEMENT SCH (16:53)
[2024-09-08] MEDS: HYDROmorphone INJ 0.5 MG/0.5 ML SYR IV PRN (16:59)
[2024-09-08] MEDS: LACTATED RINGER'S 500 ML IV ONE (18:25)
[2024-09-08] MEDS: DOCUSATE SODIUM 100 MG CAP PO SCH (21:34)
[2024-09-09] MEDS: CALCIUM CARBONATE 500 MG CHEWABLE TAB PO PRN (01:09)
[2024-09-09 07:27] LABS: Hematocrit (blood only) 22.8 % (37.0-47.0); Hemoglobin 6.9 g/dl (12.0-16.0); Mean Corpuscular Hemoglobin 22.5 pg (25.0-34.0); Mean Corpuscular Volume 74.3 fL (80.0-100.0); Platelet Count 178 K/uL (130-400); RDW Standard Deviation 40.7 fL (36.4-46.3); Red Blood Count 3.07 M/uL (4.20-5.40); White Blood Count 8.32 K/ul (4.8-10.8)
--- NOTE | 2024-09-09 07:38 | Obstetrical Progress Note ---
Date of Service September 09, 2024 Assessment & Plan (1) delivery delivered: Plan Overall doing well. h/h noted. she is ambulating without difficulty and overall feeling well. Will see how she does through the day. Consider transfusion if symptomatic. Routine care. Day #:: 1 Subjective Ambulation: ambulating normally (no lightheadedness or dizziness) Voiding: no voiding problems Passing Gas:: Yes Diet Tolerance:: regular diet (had n/v yesterday for a time, but resolved.) Lochia:: Small Feeding Type:: breast feeding Overall feeling pretty well. Feeling much better after iron transfusion. h/h 6.9/22.8. Pain controlled. Physical Exam Constitutional WD/WN, vitals as above Respiratory normal respiratory effort, lungs clear to auscultation Cardiovascular Extremities: + edema; no calf tenderness Gastrointestinal (Abdomen) soft, nt, nd, appro tender ff/appro tender 1 below u incision--c/d/i, steris with old blood Results & Data Vital Signs (Past 12 Hours) Vital Signs Temp Pulse Pulse Resp BP Pulse Ox O2 Del Method 09/09/24 04:00 37.0 C 74 16 99/63 L 99 Room Air 09/09/24 02:10 20 100 09/09/24 01:10 20 99 09/09/24 00:30 20 100 09/09/24 00:30 37.1 C 99 H 20 100/70 100 Room Air 09/08/24 23:10 20 98 09/08/24 22:10 20 98 09/08/24 21:10 20 100 09/08/24 20:10 20 100 09/08/24 20:10 36.9 C 88 20 115/71 100 Room Air
[2024-09-09 08:11] LABS: Immature Granulocytes # (auto) 0.04 K/uL (0.01-0.20); Immature Granulocytes % (auto) 0.5 %; Microcytosis Present; Polychromasia 1+
[2024-09-09] MEDS: PRENATAL VITAMIN 1 TAB PO SCH (08:30)
[2024-09-09] MEDS: FERROUS SULFATE 325 MG TAB PO SCH (08:30)
[2024-09-09] MEDS: IBUPROFEN 600 MG TAB PO SCH (08:31)
[2024-09-09 13:09] LABS: Hematocrit (blood only) 23.5 % (37.0-47.0); Hemoglobin 7.2 g/dl (12.0-16.0)
[2024-09-09] MEDS ORDERED: SODIUM CHLORIDE 0.9% 100 ML IV PRN (14:17)
[2024-09-10] MEDS: IBUPROFEN 600 MG TAB PO PRN (08:05)
[2024-09-10 08:22] LABS: Hematocrit (blood only) 26.8 % (37.0-47.0); Hemoglobin 7.9 g/dl (12.0-16.0)
--- NOTE | 2024-09-10 09:20 | Obstetrical Progress Note ---
Date of Service September 10, 2024 Assessment & Plan (1) [facility] 29 [facility] doing [facility] -Meeting all pp milestones. s/p IV iron and 1u prbc, feeling better. H/H improved. Frustrated that needs to supplement w/ formula but will continue to work on it -O+/rubella immune -f/u 6 weeks for appt, desires dc home today Subjective Ambulation: ambulating normally Voiding: no voiding problems Passing Gas:: Yes Diet Tolerance:: regular diet Lochia:: Small Pain well managed with medication. Had to supplement w/ formula last evening which was very upsetting as was able to breastfeed w/o difficulty with other two Review of Systems Denies fevers, chills, n/v, GRANT, CP, SOB Physical Exam Constitutional WD/WN, vitals as above no acute distress Respiratory normal respiratory effort, lungs clear to auscultation Cardiovascular RRR, no murmur, no edema Gastrointestinal (Abdomen) Percussion/Palpation: abdomen soft; abdomen nontender fundus firm at umbilicus and NT, incision c/d/i Musculoskeletal BLE symmetric, nonerythematous, nontender Results & Data Vital Signs (Past 12 Hours) Vital Signs Temp Pulse Resp BP Pulse Ox O2 Del Method 09/10/24 01:00 99.0 F 92 H 18 119/75 96 Room Air 09/09/24 21:20 98.6 F 86 18 103/64 97 Room Air
[2024-09-10 11:16] VITALS: RESP 16; TEMP 98.4; O2SAT 99
[2024-09-10 11:23] VITALS: BP 103/55; PULSE 88
[2024-09-10] MEDS ORDERED: ACETAMINOPHEN 325 MG TAB PO PRN (14:48)
--- NOTE | 2024-09-11 13:50 | Discharge Summary ---
Date of Service September 11, 2024 Admission HPI Per Admitting Provider Patient is a 29yowf with iup at 39 0/7 weeks who presents for a repeat c/s. Patient notes contractions that may be a little stronger. no lof/vb. +fm. Last c/s was for FTD--got to 2.5 station and not beyond, OP, 8.5#. First baby was vaginal delivery and only 6.5#, different fob. Patient is very torn and we had a long conversation about the r/b/se of FEDER[place]. Her cervix is 2+/50/- 2/post/soft. I would be willing to induce, but outcome could be same as last time with FTD and c/s after FEDERICA which has more risk to her. She could of course at any time tell us to stop the iol and proceed with c/s. and Delivery Plans Previous Section affecting *repeat C/S at 39 weeks *desires if labor prior to default c/s. 08/24- consent signed. C/S SCHEDULED FOR 09/08/[address] BRITT *Hepatitis B not immune OB Labs: Blood Type O Positive 02/04/24 Antibody Screen NEGATIVE 02/04/24 Hgb 11.1 g/dl (12.0-16.0) L 06/22/24 Hct 36.0 % (37.0-47.0) L 06/22/24 MCV 84.7 fL (80.0-100.0) 06/22/24 Plt Count 289 K/uL (130-400) 06/22/24 Rubella IgG Antibody Immune (Immune) 02/04/24 RPR Nonreactive (Nonreactive) 06/25/22 Treponema pallidum Ab Negative (Negative) 06/22/24 Hep Bs Antigen Negative (Negative) 02/04/24 Hep Bs Antigen NON-REACTIVE (NON-REACTIVE) 06/25/22 Hepatitis C Antibody Negative (Negative) 02/04/24 Hepatitis C Ab (EIA) NON-REACTIVE (NON-REACTIVE) 06/25/22 HIV 1&2 Ab/P24 Ag 4thGn Negative (Negative) 02/04/24 HIV (1&2) Ag & Ab Conf NON-REACTIVE (NON-REACTIVE) 06/25/22 Glucose 1 Hr 50 gm 124 mg/dl (70-130) 06/22/24 OB Optional Labs: Chlamydia trachomatis RNA Not Detected (NotDetected) 02/04/24 Neisseria gonorrhoeae RNA Not Detected (NotDetected) 02/04/24 Thyroid Stimulating Hormone (TSH) 1.039 uIu/ml (0.300-4.500) 10/29/22 Labs Reviewed: no labs to pull forward from prior , HK Declines genetics--mln gbs neg Discharge Data Consultations 09/08/24 05:42 Consult Anesthesiology Stat Procedures Performed Operation Date: 09/08/24 07:30 Actual Procedures p Section (Delivery of Baby Through Abdominal Incision) - Nohemy Britt MD, [facility] Course (1) delivery delivered: (2) Anemia: Plan Patient presented and had a repeat lower transverse without complication. STarting hgb was 8.5. Her postoperative course was complicated by symptomatic anemia with hgb dropping to 6.9. She accepted a until of PRBC and her d/c Hgb was 7.9. She also received an iron transfusion. She tolerated a regular diet, ambulated without difficulty, voided after removal of her napoles and had her pain will controlled on oral pain meds. She will f/u in 6 weeks for her PP exam. Instructions reviewed. Coding Level of Care Code None Diagnoses delivery delivered O82 Anemia D64.9
[2024-09-11] MEDS ORDERED: REMOVE TRANSDERM-SCOP PATCH SCH (14:30)
--- NOTE | 2024-09-12 20:12 | Coding Query ---
ANEMIA To promote full compliance with coding requirements relating to patient care, physician participation is requested in all cases of ion exchange operator uncertainty. Please assist us with the question(s) below: Coding Question(s): The record reflects the following clinical findings: Status post section. Anemia documented in the Discharge Summary. 1 UPC given. Thanks for your help! Eulogio Villagomez,JUAN DANIEL CCS If these findings are indicative of anemia, please specify the known or suspected type by placing an "X" within the parenthesis (x). If other, please document type. Examples are: ( ) Acute blood loss anemia ( ) Acute Postoperative blood loss anemia ( ) Acute postoperative anemia due to dilutional fluids ( ) Chronic blood loss anemia ( ) Anemia of chronic disease ( ) Aplastic anemia ( ) Anemia due to renal disease ( ) Anemia in neoplastic disease ( ) Iron deficient anemia (x ) Anemia, unspecified or other ( ) Other: (please specify) MTDD
== END 2024-09-10 11:45 | disposition home or self-care (01) | DRG 788 ==
LOC: 4S1 05:41 → EDSTATUS 07:30 → 4E1 12:18